=== PATIENT | male | born 1955 | race African-American/Black ===

== ENCOUNTER → 2017-01-18 | Outpatient (CLI) | payer OTHER ==
[2017-01-18 10:56] LABS: Anion Gap 13 mmol/L; Blood Urea Nitrogen 20 mg/dL (9-20); Calcium 9.2 mg/dL (8.4-10.2); Carbon Dioxide 22 mmol/L (22-30); Chloride 104 mmol/L (98-107); Glucose 113 mg/dL (74-99); Non-African American GFR(MDRD) >60 (>60 ml/min/1.73 sqM); Potassium 5.2 mmol/L (3.5-5.1); Sodium 139 mmol/L (137-145)
[2017-01-18 12:50] LABS: Hemoglobin A1C 8.1 % (4.2-6.1)
== END | disposition home or self-care (01) ==
LOC: LABWHC1 10:07
PROVIDERS: ATTEND Internal Medicine
DX: E11.9 Type 2 diabetes mellitus without complications (principal); E87.8 Other disorders of electrolyte and fluid balance, not elsewhere classified
CPT/HCPCS: 36415; 80048; 83036

== ENCOUNTER → 2017-01-23 | Outpatient (CLI) | payer OTHER ==
[2017-01-28 16:10] LABS: Mis test requested (Blood) Narcolepsy
== END | disposition home or self-care (01) ==
LOC: LABT 12:34
PROVIDERS: ATTEND Internal Medicine
DX: E78.5 Hyperlipidemia, unspecified (principal)
CPT/HCPCS: 81383; 84132

== ENCOUNTER → 2017-05-09 | Outpatient (CLI) | payer OTHER ==
[2017-05-09 13:35] LABS: Anion Gap 13 mmol/L; Blood Urea Nitrogen 21 mg/dL (9-20); Calcium 9.5 mg/dL (8.4-10.2); Carbon Dioxide 19 mmol/L (22-30); Chloride 109 mmol/L (98-107); Glucose 82 mg/dL (74-99); Non-African American GFR(MDRD) >60 (>60 ml/min/1.73 sqM); Potassium 5.2 mmol/L (3.5-5.1); Sodium 141 mmol/L (137-145)
[2017-05-09 13:37] LABS: Rheumatoid Factor, Qnt <9 IU/mL (<12)
[2017-05-09 13:41] LABS: Hemoglobin A1C 7.2 % (4.2-6.1)
--- NOTE | 2017-05-09 15:46 | XR ---
Bilateral wrists HISTORY: Rheumatoid arthritis, bilateral hand and wrist pain 4 views of the left and right wrist are submitted Bone mineralization and alignment are maintained bilaterally. Some minimal marginal spurring, subchon dral sclerosis present at the first metacarpal carpal joint of the left and right hand. No soft tissu e calcifications are present. IMPRESSION: Osteoarthritis.
[2017-05-09 19:39] LABS: ANA w/Reflex to Titer NEGATIVE (NEGATIVE)
--- NOTE | 2017-05-09 21:47 | XR ---
Bilateral hands HISTORY: Rheumatoid arthritis 3 views of both hands are submitted. Joint space loss is most significant at the metacarpophalangeal joint of the third digit, there are s ubchondral geode formation, marginal spurring on the left hand. There is ankylosis of the first metac arpophalangeal joint of the left. Alignment and bone mineralization are maintained. There is a margin al erosion at the medial aspect of the metacarpophalangeal joint of the fifth digit. Loss of joint space also present at the metacarpophalangeal joint of the first right hand. Some degen erative change present at the interphalangeal joint of the first digit as well as carpometacarpal ramu nt and first digit of the right hand. IMPRESSION: Fifth digit of the left hand shows features consistent with rheumatoid arthritis however there are additional findings compatible with osteoarthritis as described.
== END | disposition home or self-care (01) ==
LOC: LABWHC1 12:41
PROVIDERS: ATTEND Internal Medicine
DX: M19.031 Primary osteoarthritis, right wrist (principal); M19.032 Primary osteoarthritis, left wrist; M21.941 Unspecified acquired deformity of hand, right hand; M21.942 Unspecified acquired deformity of hand, left hand
CPT/HCPCS: 36415; 80048; 83036; 86038; 86200; 86225; 86431

== ENCOUNTER → 2017-05-14 | Outpatient (CLI) | payer OTHER ==
[2017-05-14 13:57] LABS: Anion Gap 13 mmol/L; Blood Urea Nitrogen 22 mg/dL (9-20); Calcium 9.2 mg/dL (8.4-10.2); Carbon Dioxide 18 mmol/L (22-30); Chloride 109 mmol/L (98-107); Glucose 153 mg/dL (74-99); Non-African American GFR(MDRD) >60 (>60 ml/min/1.73 sqM); Sodium 140 mmol/L (137-145)
[2017-05-14 14:02] LABS: Potassium 5.5 mmol/L (3.5-5.1)
[2017-05-14 21:39] LABS: Cyclic Citrull Pep IgG Unit <0.5 U/mL; Cyclic Citrullinated Pep IgG NEGATIVE (NEGATIVE)
== END | disposition home or self-care (01) ==
LOC: LABWHC1 12:38
PROVIDERS: ATTEND Internal Medicine
DX: E11.9 Type 2 diabetes mellitus without complications (principal); E87.8 Other disorders of electrolyte and fluid balance, not elsewhere classified; M81.0 Age-related osteoporosis without current pathological fracture; M06.9 Rheumatoid arthritis, unspecified
CPT/HCPCS: 36415; 80048; 85652; 86200

== ENCOUNTER → 2017-05-20 | Outpatient (CLI) | payer OTHER | END | disposition home or self-care (01) | LOC: LABWHC1 09:22 | PROVIDERS: ATTEND Internal Medicine | DX: E11.9 Type 2 diabetes mellitus without complications (principal); E87.5 Hyperkalemia | CPT/HCPCS: 36415; 84132 ==

== ENCOUNTER → 2017-08-07 | Outpatient (CLI) | payer OTHER ==
[2017-08-07 13:05] LABS: Basophils % (A) 1 %; CH 29.8; CHCM 32.8; Eosinophils # (A) 0.2 k/uL (0-0.7); Eosinophils % (A) 4 %; HCT 43.3 % (39.0-53.0); HDW 2.35; Luc # (Auto) 0.11; Luc % (Auto) 2; Lymphocytes # (A) 1.1 k/uL (1.0-4.8); Lymphocytes % (A) 20 %; MCH 29.5 pg (25.0-35.0); MCHC 32.3 g/dL (31.0-37.0); MCV 91.2 fL (80.0-100.0); Mean Platelet Volume 7.7; Monocytes # (A) 0.3 k/uL (0-1.0); Monocytes % (A) 6 %; Neutrophils # (A) 3.6 k/uL (1.3-7.7); Neutrophils % (A) 68 %; RBC 4.74 m/uL (4.30-5.90); WBC 5.3 k/uL (3.8-10.6); WBC (Perox) 5.09
[2017-08-07 13:06] LABS: ALT 19 U/L (21-72); AST 20 U/L (17-59); Alkaline Phosphatase 77 U/L (38-126); Anion Gap 12 mmol/L; Blood Urea Nitrogen 20 mg/dL (9-20); C Reactive Protein 5.4 mg/L (<10.0); Calcium 9.1 mg/dL (8.4-10.2); Carbon Dioxide 20 mmol/L (22-30); Chloride 105 mmol/L (98-107); Cholesterol 111 mg/dL (<200); Creatine Kinase 148 U/L (55-170); Glucose 158 mg/dL (74-99); HDL Cholesterol 31 mg/dL (40-60); Magnesium 1.1 mg/dL (1.6-2.3); Non-African American GFR(MDRD) >60 (>60 ml/min/1.73 sqM); Phosphorous 3.4 mg/dL (2.5-4.5); Potassium 4.8 mmol/L (3.5-5.1); Sodium 137 mmol/L (137-145); Total Bilirubin 0.5 mg/dL (0.2-1.3); Uric Acid 7.1 mg/dL (3.5-8.5)
[2017-08-07 14:37] LABS: Erythrocyte Sedimentation Rate 13 mm/hr (0-15)
[2017-08-07 21:40] LABS: Hemoglobin A1C 6.3 % (4.2-6.1)
== END | disposition home or self-care (01) ==
LOC: LABWHC1 11:28
PROVIDERS: ATTEND Internal Medicine
DX: Z00.00 Encounter for general adult medical examination without abnormal findings (principal); E87.8 Other disorders of electrolyte and fluid balance, not elsewhere classified; E87.6 Hypokalemia; D64.9 Anemia, unspecified; N40.0 Benign prostatic hyperplasia without lower urinary tract symptoms; E78.5 Hyperlipidemia, unspecified; I10 Essential (primary) hypertension; E55.9 Vitamin D deficiency, unspecified; G14 Postpolio syndrome
CPT/HCPCS: 80061; 80053; 85652; 84443; 83036; 82550; 83735; 84100; 84550; 85025; 86140; 82306; 83970; 36415; G0103

== ENCOUNTER → 2017-09-04 | Outpatient (CLI) | payer OTHER ==
--- NOTE | 2017-09-05 09:43 | ECHOF ---
Referral Reason:I25.2 post mycardial infarction MEASUREMENTS -------- HEIGHT: 177.8 cm WEIGHT: 77.1 kg BP: IVSd: 1.1 cm (0.6 - 1.1) LVIDd: 3.8 cm (3.9 - 5.3) LVPWd: 1.0 cm (0.6 - 1.1) IVSs: 1.3 cm LVIDs: 3.5 cm LVPWs: 1.0 cm LAESV Index (A-L): 24.38 ml/m Ao Diam: 3.4 cm (2.0 - 3.7) AV Cusp: 2.0 cm (1.5 - 2.6) LA Diam: 3.2 cm (2.7 - 3.8) MV EXCURSION: 20.347 mm (> 18.000) MV EF SLOPE: 64 mm/s (70 - 150) EPSS: 0.9 cm MV E Rui: 0.52 m/s MV DecT: 241 ms MV A Rui: 0.70 m/s MV E/A Ratio: 0.74 RAP: 5.00 mmHg RVSP: 9.56 mmHg FINDINGS -------- Sinus rhythm. This was a technically adequate study. The left ventricular size is normal. Left ventricular wall thickness is normal. Overall left ventricular systolic function is normal with, an EF between 55 - 60 %. The right ventricle is normal in size. Normal LA size by volume 22+/-6 ml/m2. The right atrial size is normal. There is mild aortic valve sclerosis. There is no evidence of aortic regurgitation. Mild mitral regurgitation is present. Mild tricuspid regurgitation present. There is no evidence of pulmonary hypertension. The right ventricular systolic pressure, as measured by Doppler, is 9.56mmHg. There is no pulmonic regurgitation present. The aortic root size is normal. There is no pericardial effusion. CONCLUSIONS -------- 1. The left ventricular size is normal. 2. The aortic root size is normal. 3. There is no pericardial effusion. 4. Left ventricular wall thickness is normal. 5. Overall left ventricular systolic function is normal with, an EF between 55 - 60 %. 6. There is mild aortic valve sclerosis. 7. Mild mitral regurgitation is present. 8. Mild tricuspid regurgitation present. 9. There is no evidence of pulmonary hypertension. 10. The right ventricular systolic pressure, as measured by Doppler, is 9.56mmHg. 11. There is no pulmonic regurgitation present. [place] MATE: Venus Deleon RDCS
== END | disposition home or self-care (01) ==
LOC: RADECHMAIN 11:30
PROVIDERS: ATTEND Internal Medicine
DX: I34.0 Nonrheumatic mitral (valve) insufficiency (principal); I07.1 Rheumatic tricuspid insufficiency; I25.2 Old myocardial infarction
CPT/HCPCS: 93306

== ENCOUNTER → 2017-09-11 | Outpatient (CLI) | payer OTHER ==
[2017-09-11 13:54] LABS: Anion Gap 12 mmol/L; Blood Urea Nitrogen 15 mg/dL (9-20); Calcium 9.4 mg/dL (8.4-10.2); Carbon Dioxide 23 mmol/L (22-30); Chloride 104 mmol/L (98-107); Glucose 237 mg/dL (74-99); Magnesium 1.2 mg/dL (1.6-2.3); Non-African American GFR(MDRD) >60 (>60 ml/min/1.73 sqM); Potassium 5.3 mmol/L (3.5-5.1); Sodium 139 mmol/L (137-145)
== END | disposition home or self-care (01) ==
LOC: LABWHC1 12:35
PROVIDERS: ATTEND Internal Medicine
DX: E87.8 Other disorders of electrolyte and fluid balance, not elsewhere classified (principal); E83.42 Hypomagnesemia; A09 Infectious gastroenteritis and colitis, unspecified
CPT/HCPCS: 36415; 80048; 83735; 87045; 87046; 87324; 89055

== ENCOUNTER → 2017-12-04 | Outpatient (CLI) | payer OTHER ==
[2017-12-04 11:42] LABS: Anion Gap 12 mmol/L; Blood Urea Nitrogen 29 mg/dL (9-20); Calcium 9.4 mg/dL (8.4-10.2); Carbon Dioxide 23 mmol/L (22-30); Chloride 104 mmol/L (98-107); Glucose 167 mg/dL (74-99); Magnesium 1.5 mg/dL (1.6-2.3); Potassium 5.4 mmol/L (3.5-5.1); Sodium 139 mmol/L (137-145)
[2017-12-04 19:46] LABS: Hemoglobin A1C 8.3 % (4.0-6.0)
== END | disposition home or self-care (01) ==
LOC: LABWHC1 10:45
PROVIDERS: ATTEND Internal Medicine
DX: E11.9 Type 2 diabetes mellitus without complications (principal)
CPT/HCPCS: 36415; 80048; 83036; 83735; 84630

== ENCOUNTER 2018-02-04 08:01 | Day surgery (SDC) | payer OTHER ==
[2018-02-04] MEDS ORDERED: LIDOCAINE 1% 20 ML VIAL (10MG/ML) FOR IV START INTRADERMA PRN (08:15)
[2018-02-04 08:32] VITALS: TEMP 97.5
[2018-02-04 09:00] LABS: Glucose,Whole Blood 179 mg/dL (75-99)
[2018-02-04] MEDS: LACTATED RINGERS 1,000 ML IV SCH ×2 (09:03→09:04)
[2018-02-04] MEDS ORDERED: PROPOFOL 10 MG/ML 20 ML VIAL IV ONE (09:06)
[2018-02-04] MEDS ORDERED: fentaNYL (PF) 50 MCG/ML 2 ML AMP ONE (09:06)
[2018-02-04] MEDS ORDERED: MIDAZOLAM 2 MG/2 ML VIAL ONE (09:06)
[2018-02-04] MEDS ORDERED: LACTATED RINGERS 1,000 ML IV ONE (09:08)
[2018-02-04 10:03] VITALS: BP 127/63
--- NOTE | 2018-02-04 10:12 | P.PCN ---
Date of Procedure: 02/04/18 Procedure(s) Performed: Procedure: 1. Esophagogastroduodenoscopy and biopsy. 2. Colonoscopy and biopsy. Preoperative diagnosis: Epigastric pain and diarrhea. Postoperative diagnosis: 1. Small sliding hiatal hernia with no obvious esophagitis or complicated reflux disease. 2. Mild antral gastritis. 3. Normal colonoscopy. 4. Biopsies obtained from the duodenum, antrum, esophagus and right colon. Preparation: HalfLytely prep. Sedation: Was provided by anesthesia. Brief clinical history: The patient is a 62-year-old male who is referred for this evaluation because of epigastric pain and diarrhea since last summer. He had colonoscopy in 2013 that was normal. This evaluation is to assess for inflammatory bowel disease, celiac disease or other pathology. Procedure: With the patient on his left lateral decubitus position and after informed consent and adequate sedation, the Olympus-GIF 160 video upper endoscope was used and was advanced under direct vision through the cricopharyngeus down the esophagus. There was a small sliding hiatal hernia but no obvious esophagitis or complicated reflux disease. The endoscope was then passed into the stomach which was insufflated with air and inspected in detail including the retroflex view in the cardia. The was some mottling and erythema in the antrum but no ulcers or erosions. Pyloric channel, duodenal bulb, postbulbar area and descending duodenum appeared within normal limits. Because of his symptoms, I obtained biopsies from the duodenum, antrum and esophagus then the endoscope was withdrawn and I proceeded with the colonoscopy. Perianal area did not show any fissures or fistulas. There were no masses felt on digital rectal examination. The Olympus CF Q1 60 AL videocolonoscope was then inserted in the rectum in the usual fashion and advanced to the cecum. The preparation was good. The mucosa appeared healthy. No polyps or tumors were seen or any obvious diverticular disease or other pathology. I obtained biopsies from the right colon then I retroflexed endoscope in the rectum before the endoscope was withdrawn. The patient tolerated the procedure well. Plan: I discussed the findings with the patient and his caregiver. Will await biopsy results. He will follow up with you as planned and further plans will be made based on his course and biopsy results. Dietary intolerances, medication effect or functional bowel disease to be kept in mind if his biopsies do not give us insight into possible etiology of his chronic diarrhea. I will be happy to see in the office of his symptoms persist.
[2018-02-04 10:46] VITALS: PULSE 83; RESP 18
== END 2018-02-04 10:51 | disposition home or self-care (01) ==
LOC: ORWHC2ENDO 08:01
DX: K29.80 Duodenitis without bleeding (principal); K29.50 Unspecified chronic gastritis without bleeding; K20.0 Eosinophilic esophagitis; K44.9 Diaphragmatic hernia without obstruction or gangrene; R19.7 Diarrhea, unspecified; K21.9 Gastro-esophageal reflux disease without esophagitis; I10 Essential (primary) hypertension; E11.9 Type 2 diabetes mellitus without complications; Z79.4 Long term (current) use of insulin; Z95.0 Presence of cardiac pacemaker; G20 Parkinson's disease; Z86.73 Personal history of transient ischemic attack (TIA), and cerebral infarction without residual deficits; Z79.899 Other long term (current) drug therapy; G40.909 Epilepsy, unspecified, not intractable, without status epilepticus; Z88.0 Allergy status to penicillin
CPT/HCPCS: 88305; 45380; 43239; J2250; J3010; J2704

== ENCOUNTER → 2018-03-28 | Outpatient (CLI) | payer OTHER ==
[2018-03-28 11:22] LABS: Basophils % (A) 0 %; Eosinophils # (A) 0.3 k/uL (0-0.7); Eosinophils % (A) 4 %; HCT 39.4 % (39.0-53.0); HGB 13.2 gm/dL (13.0-17.5); Lymphocytes % (A) 14 %; MCH 28.7 pg (25.0-35.0); MCHC 33.6 g/dL (31.0-37.0); MCV 85.4 fL (80.0-100.0); Mean Platelet Volume 7.1; Monocytes # (A) 0.3 k/uL (0-1.0); Monocytes % (A) 4 %; Neutrophils # (A) 5.5 k/uL (1.3-7.7); Neutrophils % (A) 76 %; Platelet Count 200 k/uL (150-450); RBC 4.61 m/uL (4.30-5.90); RDW 12.5 % (11.5-15.5); WBC 7.3 k/uL (3.8-10.6)
[2018-03-28 11:32] LABS: ALT 20 U/L (21-72); AST 16 U/L (17-59); Alkaline Phosphatase 90 U/L (38-126); Anion Gap 16 mmol/L; Blood Urea Nitrogen 23 mg/dL (9-20); Calcium 9.1 mg/dL (8.4-10.2); Carbon Dioxide 21 mmol/L (22-30); Chloride 103 mmol/L (98-107); Glucose 254 mg/dL (74-99); Magnesium 1.7 mg/dL (1.6-2.3); Potassium 4.9 mmol/L (3.5-5.1); Sodium 140 mmol/L (137-145); Total Bilirubin 0.5 mg/dL (0.2-1.3); Total Protein 6.8 g/dL (6.3-8.2)
[2018-03-28 13:55] LABS: Erythrocyte Sedimentation Rate 19 mm/hr (0-15)
[2018-03-28 20:20] LABS: Hemoglobin A1C 8.8 % (4.0-6.0)
== END | disposition home or self-care (01) ==
LOC: LABWHC1 10:59
PROVIDERS: ATTEND Internal Medicine
DX: E78.5 Hyperlipidemia, unspecified (principal); E55.9 Vitamin D deficiency, unspecified; I10 Essential (primary) hypertension; E11.9 Type 2 diabetes mellitus without complications
CPT/HCPCS: 36415; 80053; 82306; 83036; 83735; 85025; 85652

== ENCOUNTER → 2018-04-18 | Outpatient (CLI) | payer OTHER ==
[2018-04-18 13:11] LABS: Basophils % (A) 1 %; Eosinophils # (A) 0.1 k/uL (0-0.7); Eosinophils % (A) 3 %; HCT 38.1 % (39.0-53.0); HGB 13.2 gm/dL (13.0-17.5); Lymphocytes # (A) 1.1 k/uL (1.0-4.8); Lymphocytes % (A) 27 %; MCH 29.8 pg (25.0-35.0); MCHC 34.5 g/dL (31.0-37.0); MCV 86.4 fL (80.0-100.0); Mean Platelet Volume 7.4; Monocytes # (A) 0.2 k/uL (0-1.0); Monocytes % (A) 5 %; Neutrophils # (A) 2.5 k/uL (1.3-7.7); Neutrophils % (A) 62 %; Platelet Count 192 k/uL (150-450); RBC 4.42 m/uL (4.30-5.90); WBC 4.1 k/uL (3.8-10.6)
[2018-04-18 13:32] LABS: ALT 29 U/L (21-72); AST 19 U/L (17-59); Albumin 3.8 g/dL (3.5-5.0); Alkaline Phosphatase 81 U/L (38-126); Anion Gap 15 mmol/L; Blood Urea Nitrogen 18 mg/dL (9-20); Calcium 9.5 mg/dL (8.4-10.2); Carbon Dioxide 20 mmol/L (22-30); Chloride 107 mmol/L (98-107); Glucose 209 mg/dL (74-99); Magnesium 1.4 mg/dL (1.6-2.3); Potassium 4.9 mmol/L (3.5-5.1); Sodium 142 mmol/L (137-145); Total Bilirubin 0.7 mg/dL (0.2-1.3); Total Protein 6.6 g/dL (6.3-8.2)
[2018-04-18 14:08] LABS: Erythrocyte Sedimentation Rate 17 mm/hr (0-15)
[2018-04-18 21:03] LABS: Hemoglobin A1C 9.4 % (4.0-6.0)
== END | disposition home or self-care (01) ==
LOC: LABWHC1 12:12
PROVIDERS: ATTEND Internal Medicine
DX: E78.5 Hyperlipidemia, unspecified (principal); E11.9 Type 2 diabetes mellitus without complications; I10 Essential (primary) hypertension; E55.9 Vitamin D deficiency, unspecified
CPT/HCPCS: 36415; 80053; 82306; 83036; 83735; 85025; 85652

== ENCOUNTER → 2018-04-29 | Outpatient (CLI) | payer OTHER ==
--- NOTE | 2018-04-29 13:32 | US ---
EXAMINATION TYPE: US mass soft tissue chest/back DATE OF EXAM: 04/29/2018 COMPARISON: NONE CLINICAL HISTORY: R22.2 Right gluteal Mass. Patient had right gluteal mass since Saturday. Patient s tates it hurts when he sits down and don't remember having an injury Right palpable gluteal mass scanned. Nonvascular cystic appearing lesion with internal echoes = 3.5 x 4.0 x 1.8 cm Contralateral image taken IMPRESSION: Indeterminate fluid collection, correlate for hematoma or abscess, follow-up recommended
== END | disposition home or self-care (01) ==
LOC: RADUSWWP 11:23
PROVIDERS: ATTEND Internal Medicine
DX: R93.7 Abnormal findings on diagnostic imaging of other parts of musculoskeletal system (principal)

== ENCOUNTER 2018-06-24 05:58 | Observation (INO) | payer OTHER ==
[2018-06-24] MEDS ORDERED: SODIUM CHLORIDE 0.9% 500 ML IV SCH (06:15)
[2018-06-24] MEDS ORDERED: DEXTROSE 50%-WATER 50 ML SYRINGE IVP STA (06:17)
--- NOTE | 2018-06-24 06:17 | ED ---
General Adult HPI - General Source: patient, family, EMS, RN notes reviewed Mode of arrival: EMS Limitations: no limitations <Jorge Diamond - Last Filed: 06/24/18 06:30> <Solomon Dumont - Last Filed: 06/24/18 09:27> - General Chief complaint: Recheck/Abnormal Lab/Rx Stated complaint: Hypoglycemia Time Seen by Provider: 06/24/18 06:05 - History of Present Illness Initial comments: Patient is a pleasant 62-year-old male presenting to the emergency department by EMS with family for hypoglycemia. Patient was found on the floor. EMS found blood sugar of 38. They did provide one half amp of D50 with improvement of symptoms. Family states patient did act somewhat differently yesterday. They believe patient still is acting somewhat abnormal. Patient does not recall the episode well. Patient complains of feeling cold. Family states he did appear sweaty earlier. Patient is a known diabetic. Patient also has Parkinson's. (Jorge Diamond) - Related Data Home Medications Medication Instructions Recorded Confirmed Baclofen [Lioresal] 10 mg PO HS 08/04/14 06/24/18 Cholecalciferol [Vitamin D3] 2,000 unit PO DAILY 08/04/14 06/24/18 Gabapentin [Neurontin] 100 mg PO BID 08/04/14 06/24/18 Loratadine [Claritin] 10 mg PO DAILY 08/04/14 06/24/18 Atorvastatin [Lipitor] 20 mg PO HS 02/04/18 06/24/18 Fluticasone Nasal [place] [Flonase 1 spray EA NOSTRIL BID 02/04/18 06/24/18 Nasal [place]] Furosemide [Lasix] 20 mg PO DAILY 02/04/18 06/24/18 Loperamide [Imodium] 2 mg PO QID PRN 02/04/18 06/24/18 Metoprolol Tartrate [Lopressor] 25 mg PO BID 02/04/18 06/24/18 Tamsulosin [Flomax] 0.4 mg PO HS 02/04/18 06/24/18 Carbidopa-Levodopa 25-100 mg 1 tab PO TID 06/24/18 06/24/18 [Sinemet 25-100] Insulin Aspart [NovoLOG Flexpen] See Protocol SQ ACHS 06/24/18 06/24/18 Insulin Lispro [humaLOG Kwikpen] 40 unit SQ HS 06/24/18 06/24/18 Lisinopril [Zestril] 10 mg PO DAILY 06/24/18 06/24/18 Magnesium Oxide [Mag-Ox] 400 mg PO BID 06/24/18 06/24/18 Thiamine [Vitamin B-1] 100 mg PO DAILY 06/24/18 06/24/18 hydrOXYzine HCL [Atarax] 25 mg PO HS 06/24/18 06/24/18 Allergies Allergy/AdvReac Type Severity Reaction Status Date / Time Penicillins Allergy Rash/Hives Verified 06/24/18 07:59 Review of Systems ROS Other: All systems not noted in ROS Statement are negative. Constitutional: Denies: fever Eyes: Denies: eye pain ENT: Denies: ear pain Respiratory: Denies: cough, dyspnea Cardiovascular: Denies: chest pain Endocrine: Reports: fatigue Gastrointestinal: Denies: abdominal pain Genitourinary: Denies: dysuria Musculoskeletal: Denies: back pain Skin: Denies: rash Neurological: Denies: headache <Jorge Diamond - Last Filed: 06/24/18 06:30> ROS Other: All systems not noted in ROS Statement are negative. <Solomon Dumont - Last Filed: 06/24/18 09:27> ROS Statement: Those systems with pertinent positive or pertinent negative responses have been documented in the HPI. 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 Absent: meningismus Respiratory exam: Present: normal lung sounds bilaterally Cardiovascular Exam: Present: regular rate, normal rhythm GI/Abdominal exam: Present: soft. Absent: tenderness Extremities exam: Present: normal inspection, other (Previous toe amputation) Neurological exam: Present: alert. Absent: motor sensory deficit Expanded Neurological exam: Present: protecting the airway Patient oriented to: Present: person, place. Absent: time Motor strength exam: RUE: 5, LUE: 5, RLE: 5, LLE: 5 Eye Response: (4) open spontaneously Motor Response: (6) obeys commands Verbal Response: (4) confused conversation Psychiatric exam: Present: normal affect, normal mood Skin exam: Present: normal color <Jorge Diamond - Last Filed: 06/24/18 06:30> Vital Signs 06/24/18 06/24/18 06:03 07:38 Temperature 94.4 F L 96.9 F L Pulse Rate 73 87 Respiratory 16 16 Rate Blood Pressure 168/72 141/71 O2 Sat by Pulse 96 96 Oximetry EKG Findings - EKG Comments: EKG Findings:: Normal sinus rhythm 82. UT 186. QRS 66. QT 374. QTC 436. Normal axis. Septal Q waves. No acute ST change. <Jorge Diamond - Last Filed: 06/24/18 06:30> Medical Decision Making <Jorge Diamond - Last Filed: 06/24/18 06:30> - Lab Data Result diagrams: 06/24/18 07:33 06/24/18 07:33 <Solomon Dumont - Last Filed: 06/24/18 09:27> - Medical Decision Making Patient care was signed out to me by previous shift physician. Briefly, patient is a 62-year-old male presents with hypoglycemia. According to EMS patient's blood sugar was found in the mid 30s. EMS was called initially because patient was found on the ground. Patient is on insulin regimen. Patient has 24-hour caretakers. There is no suspicion that patient had excessive amounts of antidiabetic medications. It appears that patient is well- nourished as well. There is no history of patient having an adequate amount carbohydrates. Patient wasn't started on any recent antibiotics. This point there is no overt signs of infection at this time. Given these findings will have patient admitted to observation. Discussed patient case with primary care physician who is willing to accept the admission. Patient is understandable and agreeable. We will have patient case on the floor with scheduled blood glucose checks. (Solomon Dumont) - Lab Data Lab Results 07/06/24/18 06/24/18 Range/Units 06:14 07:18 07:33 WBC 7.3 (3.8-10.6) k/uL RBC 5.51 (4.30-5.90) m/uL Hgb 15.2 (13.0-17.5) gm/dL Hct 49.2 (39.0-53.0) % MCV 89.3 (80.0-100.0) fL MCH 27.5 (25.0-35.0) pg MCHC 30.8 L (31.0-37.0) g/dL RDW 12.9 (11.5-15.5) % Plt Count 183 (150-450) k/uL Neutrophils % 86 % Lymphocytes % 9 % Monocytes % 3 % Eosinophils % 1 % Basophils % 0 % Neutrophils # 6.3 (1.3-7.7) k/uL Lymphocytes # 0.6 L (1.0-4.8) k/uL Monocytes # 0.2 (0-1.0) k/uL Eosinophils # 0.1 (0-0.7) k/uL Basophils # 0.0 (0-0.2) k/uL PT (9.0-12.0) sec INR (<1.2) APTT (22.0-30.0) sec Sodium (137-145) mmol/L Potassium (3.5-5.1) mmol/L Chloride (98-107) mmol/L Carbon Dioxide (22-30) mmol/L Anion Gap mmol/L BUN (9-20) mg/dL Creatinine (0.66-1.25) mg/dL Est GFR (CKD-EPI)AfAm (>60 ml/min/1.73 sqM) Est GFR (CKD-EPI)NonAf (>60 ml/min/1.73 sqM) Glucose (74-99) mg/dL POC Glucose (mg/dL) 51 L 81 (75-99) mg/dL POC Glu Machine Accountant Kimberly Castelan Kristen Plasma Lactic Acid Dionicio (0.7-2.0) mmol/L Calcium (8.4-10.2) mg/dL Total Bilirubin (0.2-1.3) mg/dL AST (17-59) U/L ALT (21-72) U/L Alkaline Phosphatase (38-126) U/L Total Creatine Kinase (55-170) U/L CK-MB (CK-2) (0.0-2.4) ng/mL CK-MB (CK-2) Rel Index Troponin I (0.000-0.034) ng/mL Total Protein (6.3-8.2) g/dL Albumin (3.5-5.0) g/dL 06/24/18 06/24/18 06/24/18 Range/Units 07:33 07:33 07:33 WBC (3.8-10.6) k/uL RBC (4.30-5.90) m/uL Hgb (13.0-17.5) gm/dL Hct (39.0-53.0) % MCV (80.0-100.0) fL MCH (25.0-35.0) pg MCHC (31.0-37.0) g/dL RDW (11.5-15.5) % Plt Count (150-450) k/uL Neutrophils % % Lymphocytes % % Monocytes % % Eosinophils % % Basophils % % Neutrophils # (1.3-7.7) k/uL Lymphocytes # (1.0-4.8) k/uL Monocytes # (0-1.0) k/uL Eosinophils # (0-0.7) k/uL Basophils # (0-0.2) k/uL PT 10.5 (9.0-12.0) sec INR 1.1 (<1.2) APTT 24.5 (22.0-30.0) sec Sodium 142 (137-145) mmol/L Potassium 4.7 (3.5-5.1) mmol/L Chloride 106 (98-107) mmol/L Carbon Dioxide 24 (22-30) mmol/L Anion Gap 12 mmol/L BUN 39 H (9-20) mg/dL Creatinine 1.20 (0.66-1.25) mg/dL Est GFR (CKD-EPI)AfAm 74 (>60 ml/min/1.73 sqM) Est GFR (CKD-EPI)NonAf 64 (>60 ml/min/1.73 sqM) Glucose 52 L (74-99) mg/dL POC Glucose (mg/dL) (75-99) mg/dL POC Glu Machine Accountant ID Plasma Lactic Acid Dionicio 2.1 H* (0.7-2.0) mmol/L Calcium 9.6 (8.4-10.2) mg/dL Total Bilirubin 0.6 (0.2-1.3) mg/dL AST 39 (17-59) U/L ALT 19 L (21-72) U/L Alkaline Phosphatase 71 (38-126) U/L Total Creatine Kinase (55-170) U/L CK-MB (CK-2) (0.0-2.4) ng/mL CK-MB (CK-2) Rel Index Troponin I (0.000-0.034) ng/mL Total Protein 8.4 H (6.3-8.2) g/dL Albumin 4.8 (3.5-5.0) g/dL 06/24/18 06/24/18 Range/Units 07:33 08:29 WBC (3.8-10.6) k/uL RBC (4.30-5.90) m/uL Hgb (13.0-17.5) gm/dL Hct (39.0-53.0) % MCV (80.0-100.0) fL MCH (25.0-35.0) pg MCHC (31.0-37.0) g/dL RDW (11.5-15.5) % Plt Count (150-450) k/uL Neutrophils % % Lymphocytes % % Monocytes % % Eosinophils % % Basophils % % Neutrophils # (1.3-7.7) k/uL Lymphocytes # (1.0-4.8) k/uL Monocytes # (0-1.0) k/uL Eosinophils # (0-0.7) k/uL Basophils # (0-0.2) k/uL PT (9.0-12.0) sec INR (<1.2) APTT (22.0-30.0) sec Sodium (137-145) mmol/L Potassium (3.5-5.1) mmol/L Chloride (98-107) mmol/L Carbon Dioxide (22-30) mmol/L Anion Gap mmol/L BUN (9-20) mg/dL Creatinine (0.66-1.25) mg/dL Est GFR (CKD-EPI)AfAm (>60 ml/min/1.73 sqM) Est GFR (CKD-EPI)NonAf (>60 ml/min/1.73 sqM) Glucose (74-99) mg/dL POC Glucose (mg/dL) 84 (75-99) mg/dL POC Glu Machine Accountant ID Rhonda Maldonado Plasma Lactic Acid Dionicio (0.7-2.0) mmol/L Calcium (8.4-10.2) mg/dL Total Bilirubin (0.2-1.3) mg/dL AST (17-59) U/L ALT (21-72) U/L Alkaline Phosphatase (38-126) U/L Total Creatine Kinase 354 H (55-170) U/L CK-MB (CK-2) 3.4 H* (0.0-2.4) ng/mL CK-MB (CK-2) Rel Index 1.0 Troponin I 0.015 (0.000-0.034) ng/mL Total Protein (6.3-8.2) g/dL Albumin (3.5-5.0) g/dL Disposition <Jorge Diamond - Last Filed: 06/24/18 06:30> Time of Disposition: 09:27 <Solomon Dumont - Last Filed: 06/24/18 09:27> Clinical Impression: Hypoglycemia Disposition: ADMITTED IP TO THIS HOSP Condition: Fair Referrals: Ruben Arriaga MD [Primary Care Provider] - 1-2 days
[2018-06-24 06:47] LABS: Glucose,Whole Blood 51 mg/dL (75-99)
--- NOTE | 2018-06-24 07:19 | XR ---
EXAMINATION TYPE: XR chest 2V DATE OF EXAM: 06/24/2018 COMPARISON: 08/05/2014 HISTORY: 62-year-old male with fever TECHNIQUE: AP and lateral views FINDINGS: The cardiomediastinal silhouette, aorta, and pulmonary vasculature are within normal limits. Lungs an d pleural spaces are clear. IMPRESSION: No acute cardiopulmonary process.
[2018-06-24 07:20] LABS: Glucose,Whole Blood 81 mg/dL (75-99)
--- NOTE | 2018-06-24 07:22 | CT ---
EXAMINATION TYPE: CT brain wo con DATE OF EXAM: 06/24/2018 COMPARISON: 03/21/2010 HISTORY: 62-year-old male hypoglycemic episode, dizziness and confusion, Altered mental status TECHNIQUE: Examination was done in axial plane without intravenous contrast. Coronal and sagittal r econstructions performed. CT DLP: 735.1 mGycm Automated exposure control for dose reduction was used. FINDINGS: There is no evidence of acute intracranial hemorrhage, acute ischemic changes, mass, mass-effect, or extra-axial fluid collection. There is no effacement of cerebral sulci or basal subarachnoid cister ns. There is no hydrocephalus. There is no midline shift. [place]-white matter distinction is preserv ed. Partially empty sella incidentally noted. Mild patchy periventricular white matter hypodensities. Old lacunar infarct in the left basal ganglia. Paranasal sinuses and mastoid air cells well pneumatized. Rightward nasal deviation. Orbits and globe s are intact. IMPRESSION: No acute intracranial abnormality seen. Mild changes of chronic small vessel ischemic disease and old lacunar infarct left basal ganglia.
[2018-06-24 07:50] LABS: Basophils % (A) 0 %; Eosinophils # (A) 0.1 k/uL (0-0.7); Eosinophils % (A) 1 %; HCT 49.2 % (39.0-53.0); HGB 15.2 gm/dL (13.0-17.5); Lymphocytes # (A) 0.6 k/uL (1.0-4.8); Lymphocytes % (A) 9 %; MCH 27.5 pg (25.0-35.0); MCHC 30.8 g/dL (31.0-37.0); MCV 89.3 fL (80.0-100.0); Mean Platelet Volume 7.1; Monocytes # (A) 0.2 k/uL (0-1.0); Monocytes % (A) 3 %; Neutrophils # (A) 6.3 k/uL (1.3-7.7); Neutrophils % (A) 86 %; Platelet Count 183 k/uL (150-450); RBC 5.51 m/uL (4.30-5.90); RDW 12.9 % (11.5-15.5); WBC 7.3 k/uL (3.8-10.6)
[2018-06-24 08:02] LABS: INR 1.1 (<1.2); Partial Thromboplastin Time 24.5 sec (22.0-30.0); Prothrombin Time 10.5 sec (9.0-12.0)
[2018-06-24 08:06] LABS: Albumin 4.8 g/dL (3.5-5.0); Calcium 9.6 mg/dL (8.4-10.2); Total Bilirubin 0.6 mg/dL (0.2-1.3); Total Protein 8.4 g/dL (6.3-8.2)
[2018-06-24 08:10] LABS: Potassium 4.7 mmol/L (3.5-5.1)
[2018-06-24 08:24] LABS: Troponin I 0.015 ng/mL (0.000-0.034)
[2018-06-24 08:30] LABS: Glucose,Whole Blood 84 mg/dL (75-99)
[2018-06-24 08:30] LABS: Creatine Kinase MB 3.4 ng/mL (0.0-2.4)
[2018-06-24] MEDS ORDERED: NALOXONE 0.4 MG/ML 1 ML VIAL IV PRN (09:23)
[2018-06-24] MEDS ORDERED: SODIUM CHLORIDE 0.9% 500 ML IV STA (09:41)
[2018-06-24 09:56] LABS: Appearance,Urine Clear (Clear); Bilirubin,Urine Negative (Negative); Blood,Urine Negative (Negative); Color,Urine Light Yellow; Glucose,Urine (UA) 2+ (Negative); Ketones,Urine Negative (Negative); Leukocyte Esterase,Urine Negative (Negative); Nitrite,Urine Negative (Negative); PH, Urine 5.5 (5.0-8.0); Protein,Urine Negative (Negative); Specific Gravity,Urine 1.008 (1.001-1.035); Urobilinogen,Urine <2.0 mg/dL (<2.0)
[2018-06-24 10:17] LABS: Glucose,Whole Blood 136 mg/dL (75-99)
[2018-06-24] MEDS ORDERED: LOPERAMIDE 2 MG CAP PO PRN (10:42)
[2018-06-24 11:09] LABS: Glucose,Whole Blood 178 mg/dL (75-99)
[2018-06-24] MEDS: SODIUM CHLORIDE 0.9% 1,000 ML IV SCH ×2 (12:25→16:54)
[2018-06-24] MEDS: INSULIN ASPART 100 UNIT/ML 1 ML 10 ML VIAL SQ SCH ×2 (12:25→17:48)
[2018-06-24] MEDS: CARBIDOPA-LEVODOPA 25-100 MG 1 EACH TAB PO SCH ×3 (12:26→21:01)
[2018-06-24] MEDS: CHOLECALCIFEROL 1,000 UNIT TAB PO SCH (12:26)
[2018-06-24] MEDS: GABAPENTIN 100 MG CAP PO SCH ×2 (12:27→21:01)
[2018-06-24] MEDS ORDERED: MAGNESIUM HYDROXIDE 2,400 MG/10 ML CUP PO PRN (13:50)
--- NOTE | 2018-06-24 13:50 | P.HPIM ---
History of Present Illness H&P Date: 06/24/18 (Observation admission) Chief Complaint: Hypoglycemia secondary to excess of insulin at bedtime This is a history and physical dictated by Dr. berta MD,FACP. Chief complaint: Broad by ambulance to the emergency room with the underlying hypoglycemia and as he had was followed down and was out by his cousin. They checked today and mass blood sugar found that he is 38 and that's around 5:00 AM. Patient received of D50 and they started the IV with D5 W and subsequently patient brought to the emergency room. History of present illness a 62 years old -[place] male with the underlying insulin-dependent diabetes mellitus has been received large insulin unit 40 units as he stated at bedtime and apparently there is some misunderstanding and mistakes of the amount of insulin. He received 40 units last night of NovoLog insulin. Patient supposedly he is on long-acting insulin as well as he is on short- acting insulin for the day to scale and during the night he is only on long- acting insulin on reviewing the medication found that he was taken Humalog quick pen and NovoLog and both of them is short acting which resulted and his hypoglycemic episode. With a 38 blood sugar The past medical history patient has history of recent lump from his left buttocks as a but has been removed by Dr. Jordan apparently associated with fat necrosis no malignancy. He has history of diabetes mellitus type 2 insulin-dependent, benign prostatic hypertrophy, Parkinson disease treated by Dr. Simon, hypertension, history of diarrhea and history of constipation. Patient requested today on the interview milk of magnesia because of the constipation. 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 Bilateral nasal ALLERGY as well as underlying chronic muscle spasm and low back pain. Medication he is on baclofen 10 mg daily at bedtime by Dr. Simon Vitamin D3 2000 units once a day Gabapentin teen Neurontin is 100 mg twice a day for neuropathy Loratadine 10 mg daily Atorvastatin 20 mg at at bedtime daily Fluticasone nasal spray and this is one spray each nostril twice a day Furosemide 20 mg daily Imodium 2 mg by mouth twice a day only when necessary with the diarrhea next Tamsulosin Flomax is 0.4 mg at at bedtime Carbidopa levodopa 97814 milligrams "" Sinemet 30291 one tablet 3 times a day. NovoLog flex pen before meals and at bedtime with the history of long-acting however patient confused and he used was the short-acting Humalog quick pen which has been discontinued. Lisinopril 10 mg daily Magnesium oxide 400 mg twice a day with a history of hypomagnesemia. Thiamine vitamin B1 100 mg daily and hydroxyzine Atarax 25 mg at at bedtime. ALLERGY to penicillin. Review of system: 14 point review of was negative and patient alert oriented 3 he will wake up. Injection of the D50 from the hypoglycemia. And no neurological deficit. No history of seizure disorder and he is not on any medication for that. He had some joint replacement on the feet with the deformity of the feet. Patient with developmental mentally abnormality since . Smoking never. Drinking never Examination: Conscious alert oriented 3 able to communicate freely. General appearance is no distress no shortness of breath. HEENT head was normocephalic and atraumatic pupils equal reactive no trauma apparent normal nose and pharynx normal his swallowing and eating. Neck was supple no JVD no thyromegaly no lymphadenopathy. Chest clear to auscultation and percussion. Heart: Regular sinus rhythm with PMI fifth intercostal space mildly outside midclavicular line normal S1 and S2 no gallop appreciated. GI no abdominal pain or tendon tenderness in the 4 quadrants as well as epigastric and suprapubic. Extremities: No edema and positive pulses and he has deformity of both feet with several surgery in the past. Psychiatrically exam stable normal mood. Skin normal with a history of surgery by Dr. Jordan recently on the left gluteal area. Her vital his vital sign indicating temperature was 96.9 pulse 87 respiratory rate 16 blood pressure 141/71 with the oxygen 96% his EKG normal sinus rhythm with a rate of 82 and the septal Q waves and no acute ST segment changes the QTC 436 and the QRS 66 and the NE was 186 Laboratory data white count WBC 7.3 and hemoglobin 15.2 and hematocrit 49.2 and platelet count 183 Chemistry is sodium 142 potassium 4.7 chloride 106 carbon dioxide 24 and BUN 39 and creatinine 1.2 with the estimated glomerular filtration rate is 52 with blood sugar which is still at that time hypoglycemic at 7:30 3 in the morning he had also lactic acid was slightly elevated probably associated with the mild dehydration his electrolyte however potassium 4.7 and the sodium 142 and chloride 106 carbon dioxide 24 and no evidence of acidosis is being anion gap is 12. Estimated glomerular filtration rate for 62 with the probably chronic kidney disease stage II Assessment: Acute hypoglycemic episode with the increase bedtime insulin he received 40 units apparently mistakenly. He does not have any previous episodes of hypo- hyperglycemia. Chronic kidney disease disease stage II. Hypertension hypertensive heart disease Diabetes mellitus type 2 insulin-dependent. 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 History of hypomagnesemia. History of diarrhea for his constipation was questionable diabetic neuropathy versus irritable bowel syndrome. Plan: We'll continue IV slowly and recheck the lactic acid monitoring the blood sugar with the before meals and at bedtime only coverage without any adding any other long-acting medication Patient admitted on observation status And we will start him on magnesium for his bowel as he requested. On a when necessary basis and ambulate as tolerated. Past Medical History Past Medical History: Diabetes Mellitus, GERD/Reflux, Hypertension, Memory Impairment, Seizure Disorder Additional Past Medical History / Comment(s): Parkinsons; mentally delayed from states caregiver History of Any Multi-Drug Resistant Organisms: None Reported Past Surgical History: Joint Replacement, Orthopedic Surgery Past Anesthesia/Blood Transfusion Reactions: No Reported Reaction Smoking Status: Never smoker Medications and Allergies Home Medications Medication Instructions Recorded Confirmed Type Baclofen [Lioresal] 10 mg PO HS 08/04/14 06/24/18 History Cholecalciferol [Vitamin D3] 2,000 unit PO DAILY 08/04/14 06/24/18 History Gabapentin [Neurontin] 100 mg PO BID 08/04/14 06/24/18 History Loratadine [Claritin] 10 mg PO DAILY 08/04/14 06/24/18 History Atorvastatin [Lipitor] 20 mg PO HS 02/04/18 06/24/18 History Fluticasone Nasal [place] [Flonase 1 spray EA NOSTRIL BID 02/04/18 06/24/18 History Nasal [place]] Furosemide [Lasix] 20 mg PO DAILY 02/04/18 06/24/18 History Loperamide [Imodium] 2 mg PO QID PRN 02/04/18 06/24/18 History Metoprolol Tartrate [Lopressor] 25 mg PO BID 02/04/18 06/24/18 History Tamsulosin [Flomax] 0.4 mg PO HS 02/04/18 06/24/18 History Carbidopa-Levodopa 25-100 mg 1 tab PO TID 06/24/18 06/24/18 History [Sinemet 25-100] Insulin Aspart [NovoLOG Flexpen] See Protocol SQ ACHS 06/24/18 06/24/18 History Insulin Lispro [humaLOG Kwikpen] 40 unit SQ HS 06/24/18 06/24/18 History Lisinopril [Zestril] 10 mg PO DAILY 06/24/18 06/24/18 History Magnesium Oxide [Mag-Ox] 400 mg PO BID 06/24/18 06/24/18 History Thiamine [Vitamin B-1] 100 mg PO DAILY 06/24/18 06/24/18 History hydrOXYzine HCL [Atarax] 25 mg PO HS 06/24/18 06/24/18 History Allergies Allergy/AdvReac Type Severity Reaction Status Date / Time Penicillins Allergy Rash/Hives Verified 06/24/18 07:59 Physical Exam Vitals: Vital Signs Temp Pulse Pulse Resp BP BP Pulse Ox 06/24/18 10:20 98.0 F 80 20 138/87 100 06/24/18 10:11 97.2 F L 77 16 130/85 96 06/24/18 07:38 96.9 F L 87 16 141/71 96 06/24/18 06:03 94.4 F L 73 16 168/72 96 Intake and Output 06/23/18 06/24/18 06/24/18 22:59 06:59 14:59 Other: Weight 91 kg Results CBC & Chem 7: 06/24/18 07:33 06/24/18 07:33 Labs: Abnormal Lab Results - Last 24 Hours (Table) 06/24/18 06/24/18 06/24/18 Range/Units 06:14 07:33 07:33 MCHC 30.8 L (31.0-37.0) g/dL Lymphocytes # 0.6 L (1.0-4.8) k/uL BUN 39 H (9-20) mg/dL Glucose 52 L (74-99) mg/dL POC Glucose (mg/dL) 51 L (75-99) mg/dL Plasma Lactic Acid Dionicio (0.7-2.0) mmol/L ALT 19 L (21-72) U/L Total Creatine Kinase (55-170) U/L CK-MB (CK-2) (0.0-2.4) ng/mL Total Protein 8.4 H (6.3-8.2) g/dL Urine Glucose (UA) (Negative) 06/24/18 06/24/18 06/24/18 Range/Units 07:33 07:33 09:35 MCHC (31.0-37.0) g/dL Lymphocytes # (1.0-4.8) k/uL BUN (9-20) mg/dL Glucose (74-99) mg/dL POC Glucose (mg/dL) (75-99) mg/dL Plasma Lactic Acid Dionicio 2.1 H* (0.7-2.0) mmol/L ALT (21-72) U/L Total Creatine Kinase 354 H (55-170) U/L CK-MB (CK-2) 3.4 H* (0.0-2.4) ng/mL Total Protein (6.3-8.2) g/dL Urine Glucose (UA) 2+ H (Negative) 06/24/18 06/24/18 Range/Units 10:03 11:07 MCHC (31.0-37.0) g/dL Lymphocytes # (1.0-4.8) k/uL BUN (9-20) mg/dL Glucose (74-99) mg/dL POC Glucose (mg/dL) 136 H 178 H (75-99) mg/dL Plasma Lactic Acid Dionicio (0.7-2.0) mmol/L ALT (21-72) U/L Total Creatine Kinase (55-170) U/L CK-MB (CK-2) (0.0-2.4) ng/mL Total Protein (6.3-8.2) g/dL Urine Glucose (UA) (Negative)
[2018-06-24] MEDS: FLUTICASONE 50MCG/SPRAY NASAL 16GM EA NOSTRIL SCH ×2 (16:56→20:59)
[2018-06-24] MEDS: FUROSEMIDE 20 MG TAB PO SCH (16:57)
[2018-06-24 17:06] LABS: Glucose,Whole Blood 309 mg/dL (75-99)
[2018-06-24 19:35] LABS: Hemoglobin A1C 8.2 % (4.0-6.0)
[2018-06-24 20:13] LABS: Glucose,Whole Blood 327 mg/dL (75-99)
[2018-06-24] MEDS ORDERED: TAMSULOSIN 0.4 MG CAP.ER.24H PO SCH (21:00)
[2018-06-24] MEDS ORDERED: BACLOFEN 10 MG TAB PO SCH (21:00)
[2018-06-24] MEDS ORDERED: ATORVASTATIN 20 MG TAB PO SCH (21:00)
[2018-06-24] MEDS ORDERED: hydrOXYzine HCL 25 MG TAB PO SCH (21:00)
[2018-06-24] MEDS: MAGNESIUM OXIDE 400 MG TAB PO SCH (21:01)
[2018-06-24] MEDS: METOPROLOL TARTRATE 25 MG TAB PO SCH (21:01)
[2018-06-24 21:18] VITALS: RESP 16
[2018-06-25 06:53] LABS: Glucose,Whole Blood 242 mg/dL (75-99)
[2018-06-25] MEDS: INSULIN ASPART 100 UNIT/ML 1 ML 10 ML VIAL SQ SCH ×2 (07:53→12:42)
[2018-06-25] MEDS: CHOLECALCIFEROL 1,000 UNIT TAB PO SCH (07:54)
[2018-06-25] MEDS: CARBIDOPA-LEVODOPA 25-100 MG 1 EACH TAB PO SCH (07:54)
[2018-06-25] MEDS: FUROSEMIDE 20 MG TAB PO SCH (07:55)
[2018-06-25] MEDS: FLUTICASONE 50MCG/SPRAY NASAL 16GM EA NOSTRIL SCH (07:55)
[2018-06-25] MEDS: GABAPENTIN 100 MG CAP PO SCH (07:56)
[2018-06-25] MEDS: MAGNESIUM OXIDE 400 MG TAB PO SCH (07:57)
[2018-06-25] MEDS: METOPROLOL TARTRATE 25 MG TAB PO SCH (07:57)
[2018-06-25 08:19] LABS: Calcium 8.9 mg/dL (8.4-10.2); Magnesium 1.6 mg/dL (1.6-2.3); Potassium 5.1 mmol/L (3.5-5.1)
[2018-06-25] MEDS ORDERED: LORATADINE 10 MG TAB PO SCH (09:00)
[2018-06-25] MEDS ORDERED: ENOXAPARIN 40 MG/0.4 ML SYRINGE SQ SCH (09:00)
[2018-06-25] MEDS ORDERED: THIAMINE 100 MG TAB PO SCH (09:00)
[2018-06-25] MEDS ORDERED: LISINOPRIL 10 MG TAB PO SCH (09:00)
[2018-06-25 11:25] LABS: Glucose,Whole Blood 281 mg/dL (75-99)
--- NOTE | 2018-06-25 13:22 | P.DS ---
Providers Date of admission: 06/24/18 09:23 Expected date of discharge: 06/25/18 (Observation status) Attending physician: Ruben Arriaga Primary care physician: Ruben Arriaga This is discharge summary from observation status date of admission 06/24 2018 Date of discharge 06/25/2018. Final diagnosis: Hypoglycemia with a blood sugar 38 found not responding, wake up with the injection of D50. Due to use of 40 mg of short acting insulin. Diabetes mellitus type 2, insulin-dependent, with severe hyperglycemia was not controlled in the past. Mental function disability since . 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 Chronic hypomagnesemia History of intermittent diarrhea with the etiology unknown with probability diabetic gastropathy. Hyperlipidemia. Small vessel ischemic disease by the computed tomography scan chronic with the old lacunar infarction in the left basal ganglia old. Parkinson disease treated by Dr. Simon. Hypertension essential controlled. Presentation to the ER: Patient was picked up from home by EMS and subsequently given D50 and brought to the emergency room with the hypoglycemia patient was slow and lethargic and awake admitted to the hospital on observation status and monitoring the blood sugar. Patient continued monitoring with the blood sugar and he become also hyperglycemic and insulin was started subcu to scale. Patient was mildly dehydrated and and gentle hydration was advised with 50 mL an hour 0.9 normal saline. His hemoglobin A1c was 8.2 and his repeat blood sugar in the hospital was 52 and on admission as well as the BUN 39 and creatinine 1.2. On the hospital course his electrolyte was repeated with the improvement of the BUN 30 and creatinine to 1.15 and his blood sugar has been picked up to 249 his magnesium today 1.6 and his liver enzyme yesterday was normal and secondary to the fall he has CK 354 mildly elevated however the troponin was done on admission and was negative his total protein 8.4 with albumin 4.8 with the underlying as mentioned mild dehydration start to improve with the IV as well as we will be continuing the oral hydration. His white WBC 7.3, hemoglobin 15.2, hematocrit 49.2 and platelet count is 138. Patient was raised on DVT prophylaxis however the patient advised for ambulation 4 times a day in the hospital. Chest x-ray done on admission and there is no acute cardiopulmonary process. On discharge: On discharge today 06/25/2018 temperature 98.6 orally pulse rate 77 regular and his blood pressure 130/85 with a mean 94 and his oxygen saturation 100%. Gen. exam: Patient conscious alert oriented 3 eating his lunch sitting in bed and able to ambulate. HEENT was normal and he is edentulous but eat on his, gum Neck was supple no JVD no thyromegaly no lymphadenopathy trachea midline. Chest was clear to auscultation and percussion no wheezes no rhonchi's Heart regular sinus rhythm no dysrhythmia. Abdomen soft positive bowel sounds no organ enlargement. Extremities he had multiple surgery was atrophy of the muscle and some balance problem associated with the history of polio and postpolio syndrome however pulses is intact bilaterally. Neurologically stable Psychiatry stable Assessment and plan: #1 patient stable general condition. #2 will continue his current medication again talked to Ariella his caregiver and we will be adjusting the insulin to a short-acting with the NovoLog and long acting with Levemir or Lantus, currently hospital use Levemir and will continue with the prescription for Levemir pens U1 100 and he will be started on 10 units only at bedtime and continue with the NovoLog according to the hospital for scale and the nursing staff will give him the scale. I will see him on Saturday for further evaluation with the oral medication in a bag as well as NovoLog short acting insulin also to bring her record for the insulin. Patient stable general condition for discharge home today Patient Condition at Discharge: Fair Plan - Discharge Summary Discharge Rx Participant: No New Discharge Prescriptions: New Insulin Detemir [Levemir] 10 unit SQ HS #5 pen Continue Loratadine [Claritin] 10 mg PO DAILY Gabapentin [Neurontin] 100 mg PO BID Baclofen [Lioresal] 10 mg PO HS Cholecalciferol [Vitamin D3] 2,000 unit PO DAILY Metoprolol Tartrate [Lopressor] 25 mg PO BID Tamsulosin [Flomax] 0.4 mg PO HS Fluticasone Nasal [place] [Flonase Nasal [place]] 1 spray EA NOSTRIL BID Furosemide [Lasix] 20 mg PO DAILY Loperamide [Imodium] 2 mg PO QID PRN PRN Reason: Diarrhea Atorvastatin [Lipitor] 20 mg PO HS Insulin Aspart [NovoLOG Flexpen] See Protocol SQ ACHS Thiamine [Vitamin B-1] 100 mg PO DAILY Magnesium Oxide [Mag-Ox] 400 mg PO BID Lisinopril [Zestril] 10 mg PO DAILY hydrOXYzine HCL [Atarax] 25 mg PO HS Carbidopa-Levodopa 25-100 mg [Sinemet 25-100 mg] 1 tab PO TID Discontinued Insulin Lispro [humaLOG Kwikpen] 40 unit SQ HS Discharge Medication List Baclofen [Lioresal] 10 mg PO HS 08/04/14 [History] Cholecalciferol [Vitamin D3] 2,000 unit PO DAILY 08/04/14 [History] Gabapentin [Neurontin] 100 mg PO BID 08/04/14 [History] Loratadine [Claritin] 10 mg PO DAILY 08/04/14 [History] Atorvastatin [Lipitor] 20 mg PO HS 02/04/18 [History] Fluticasone Nasal [place] [Flonase Nasal [place]] 1 spray EA NOSTRIL BID 02/04/18 [ History] Furosemide [Lasix] 20 mg PO DAILY 02/04/18 [History] Loperamide [Imodium] 2 mg PO QID PRN 02/04/18 [History] Metoprolol Tartrate [Lopressor] 25 mg PO BID 02/04/18 [History] Tamsulosin [Flomax] 0.4 mg PO HS 02/04/18 [History] Carbidopa-Levodopa 25-100 mg [Sinemet 25-100 mg] 1 tab PO TID 06/24/18 [History] Insulin Aspart [NovoLOG Flexpen] See Protocol SQ ACHS 06/24/18 [History] Lisinopril [Zestril] 10 mg PO DAILY 06/24/18 [History] Magnesium Oxide [Mag-Ox] 400 mg PO BID 06/24/18 [History] Thiamine [Vitamin B-1] 100 mg PO DAILY 06/24/18 [History] hydrOXYzine HCL [Atarax] 25 mg PO HS 06/24/18 [History] Insulin Detemir [Levemir] 10 unit SQ HS #5 pen 06/25/18 [Rx] Follow up Appointment(s)/Referral(s): Ruben Arriaga MD [Primary Care Provider] - 1-2 days
[2018-06-25 15:13] VITALS: BP 119/57; PULSE 67; TEMP 99.2
[2018-06-25] MEDS ORDERED: INSULIN DETEMIR 100 UNIT/ML 10 ML VIAL SQ SCH (21:00)
== END 2018-06-25 15:55 | disposition home or self-care (01) ==
LOC: EC 05:58 → 5MS5E 09:23
PROVIDERS: ADMIT Internal Medicine; ATTEND Internal Medicine
DX: E11.649 Type 2 diabetes mellitus with hypoglycemia without coma (principal); E11.65 Type 2 diabetes mellitus with hyperglycemia; Z86.12 Personal history of poliomyelitis; E83.42 Hypomagnesemia; E78.5 Hyperlipidemia, unspecified; G20 Parkinson's disease; E86.0 Dehydration; R74.8 Abnormal levels of other serum enzymes; G14 Postpolio syndrome; N40.0 Benign prostatic hyperplasia without lower urinary tract symptoms; K59.00 Constipation, unspecified; E55.9 Vitamin D deficiency, unspecified; E11.40 Type 2 diabetes mellitus with diabetic neuropathy, unspecified; E11.22 Type 2 diabetes mellitus with diabetic chronic kidney disease; M62.838 Other muscle spasm; M54.5 Low back pain; F79 Unspecified intellectual disabilities; G40.909 Epilepsy, unspecified, not intractable, without status epilepticus; I13.10 Hypertensive heart and chronic kidney disease without heart failure, with stage 1 through stage 4 chronic kidney disease, or unspecified chronic kidney disease; N18.2 Chronic kidney disease, stage 2 (mild); K21.9 Gastro-esophageal reflux disease without esophagitis; R19.7 Diarrhea, unspecified; T38.3X5A Adverse effect of insulin and oral hypoglycemic [antidiabetic] drugs, initial encounter; Z79.4 Long term (current) use of insulin; Z79.899 Other long term (current) drug therapy; Z79.51 Long term (current) use of inhaled steroids; Z88.0 Allergy status to penicillin; M21.962 Unspecified acquired deformity of left lower leg; M21.961 Unspecified acquired deformity of right lower leg; Z86.73 Personal history of transient ischemic attack (TIA), and cerebral infarction without residual deficits; R74.0 Nonspecific elevation of levels of transaminase and lactic acid dehydrogenase [LDH]
CPT/HCPCS: 99285 ×2; 96374 ×2; 96372; 36415; 93005; 80053; 80048; 82550; 82553; 83605 ×2; 83735; 84484; 85025; 85610; 85730; 81003; 87040; 87086; 83036; 71046; 70450; G0378 ×2; J1650

== ENCOUNTER → 2018-12-30 | Outpatient (CLI) | payer MEDICARE, OTHER ==
[2018-12-30 20:44] LABS: Albumin 4.4 g/dL (3.80-4.90); Albumin/Globulin Ratio 1.57 (1.60-3.17); Anion Gap 9.5 mmol/L (4.00-12.00); Calcium 9.5 mg/dL (8.7-10.3); Carbon Dioxide 24.5 mmol/L (21.6-31.8); Globulin 2.8 g/dL (1.6-3.3); LDL Cholesterol,Calculated 87.6 mg/dL (0.0-131.0); Potassium 4.6 mmol/L (3.5-5.5); Total Bilirubin 0.5 mg/dL (0.3-1.2); Total Protein 7.2 g/dL (6.2-8.2); VLDL Calculation 20.4 mg/dL (5.00-40.00)
[2018-12-30 23:38] LABS: Hemoglobin A1C 10.6 % (4.0-6.0)
== END | disposition home or self-care (01) ==
LOC: LABWHC1 12:34
PROVIDERS: ATTEND Internal Medicine
DX: E11.9 Type 2 diabetes mellitus without complications (principal)
CPT/HCPCS: 36415; 80053; 80061; 82043; 82570; 83036

== ENCOUNTER → 2019-01-28 | Outpatient (CLI) | payer MEDICARE, OTHER ==
--- NOTE | 2019-01-28 18:40 | ECHOF ---
Referral Reason:R55 syncope and collapse MEASUREMENTS -------- HEIGHT: 177.8 cm WEIGHT: 79.4 kg BP: RVIDd: 2.3 cm (< 3.3) IVSd: 1.3 cm (0.6 - 1.1) LVIDd: 4.0 cm (3.9 - 5.3) LVPWd: 1.3 cm (0.6 - 1.1) IVSs: 1.6 cm LVIDs: 2.7 cm LVPWs: 1.6 cm LAESV Index (A-L): 25.68 ml/m Ao Diam: 3.6 cm (2.0 - 3.7) AV Cusp: 1.8 cm (1.5 - 2.6) LA Diam: 2.3 cm (2.7 - 3.8) MV EXCURSION: 21.475 mm (> 18.000) MV EF SLOPE: 133 mm/s (70 - 150) EPSS: 0.8 cm MV E Rui: 0.71 m/s MV DecT: 264 ms MV A Rui: 0.66 m/s MV E/A Ratio: 1.09 RAP: 5.00 mmHg RVSP: 13.38 mmHg FINDINGS -------- Sinus rhythm. This was a technically adequate study. The left ventricular size is normal. There is mild concentric left ventricular hypertrophy. Overa ll left ventricular systolic function is low-normal with, an EF between 50 - 55 %. False Tendon Vis ualized in the LV The right ventricle is normal in size and function. Normal LA size by volume 22+/-6 ml/m2. RA appears enlarged. There is mild aortic valve sclerosis. There is no evidence of aortic regurgitation. There is no e vidence of aortic stenosis. The mitral valve leaflets are mildly thickened. There is trace mitral regurgitation. Trace tricuspid regurgitation present. Right ventricular systolic pressure is normal at < 35 mmHg. There is no evidence of pulmonary hypertension. Trace/mild (physiologic) pulmonic regurgitation. The aortic root size is normal. Normal inferior vena cava with normal inspiratory collapse consistent with estimated right atrial pre ssure of 5 mmHg. There is no pericardial effusion. CONCLUSIONS -------- 1. Sinus rhythm. 2. This was a technically adequate study. 3. The left ventricular size is normal. 4. There is mild concentric left ventricular hypertrophy. 5. Overall left ventricular systolic function is low-normal with, an EF between 50 - 55 %. 6. False Tendon Visualized in the LV 7. Normal LA size by volume 22+/-6 ml/m2. 8. RA appears enlarged. 9. There is mild aortic valve sclerosis. 10. The mitral valve leaflets are mildly thickened. 11. There is trace mitral regurgitation. 12. Trace tricuspid regurgitation present. 13. Right ventricular systolic pressure is normal at < 35 mmHg. 14. There is no evidence of pulmonary hypertension. 15. Trace/mild (physiologic) pulmonic regurgitation. 16. The aortic root size is normal. 17. There is no pericardial effusion. MEDICINAL CHEMIST: Franky Kennedy RDCS
== END | disposition home or self-care (01) ==
LOC: RADECHMAIN 11:44
PROVIDERS: ATTEND Internal Medicine
DX: I08.0 Rheumatic disorders of both mitral and aortic valves (principal)
CPT/HCPCS: 93306

== ENCOUNTER 2019-10-20 04:09 | Emergency (ER) | payer MEDICARE, OTHER ==
[2019-10-20 07:08] LABS: Appearance,Urine Clear (Clear); Bilirubin,Urine Negative (Negative); Blood,Urine Small (Negative); Color,Urine Light Yellow; Glucose,Urine (UA) Negative (Negative); Hyaline Casts,Urine 1 /lpf (0-2); Ketones,Urine Negative (Negative); Leukocyte Esterase,Urine Negative (Negative); Mucus,Urine Rare /hpf; Nitrite,Urine Negative (Negative); Protein,Urine Negative (Negative); RBC,Urine 5 /hpf (0-5); Specific Gravity,Urine 1.007 (1.001-1.035); Squamous Epithelial Cell,Urine <1 /hpf (0-4); Urobilinogen,Urine <2.0 mg/dL (<2.0); WBC,Urine 1 /hpf (0-5)
[2019-10-20 07:09] LABS: Albumin 4.5 g/dL (3.5-5.0); Calcium 9.4 mg/dL (8.4-10.2); Magnesium 1.8 mg/dL (1.6-2.3); T4, Free (Free Thyroxine) 1.36 ng/dL (0.78-2.19); Total Bilirubin 0.6 mg/dL (0.2-1.3); Total Protein 8.1 g/dL (6.3-8.2)
[2019-10-20 07:10] LABS: Basophils % (A) 0 %; Eosinophils % (A) 0 %; HCT 44.4 % (39.0-53.0); HGB 14.3 gm/dL (13.0-17.5); Lymphocytes # (A) 0.5 k/uL (1.0-4.8); Lymphocytes % (A) 6 %; MCH 29.3 pg (25.0-35.0); MCHC 32.3 g/dL (31.0-37.0); MCV 90.7 fL (80.0-100.0); Mean Platelet Volume 6.2; Monocytes # (A) 0.5 k/uL (0-1.0); Monocytes % (A) 5 %; Neutrophils # (A) 8.1 k/uL (1.3-7.7); Neutrophils % (A) 88 %; Platelet Count 209 k/uL (150-450); RDW 13.3 % (11.5-15.5); WBC 9.3 k/uL (3.8-10.6)
[2019-10-20 07:29] LABS: Partial Thromboplastin Time 25.9 sec (22.0-30.0)
--- NOTE | 2019-10-20 07:59 | XR ---
EXAM: XR Chest, 2 Views CLINICAL HISTORY: CHEST PAIN TECHNIQUE: Frontal and lateral views of the chest. COMPARISON: 06/24/2018. FINDINGS: Lungs: Essentially unchanged. No consolidation. Pleural space: Unremarkable. No pneumothorax. Heart: Unremarkable. No cardiomegaly. Mediastinum: Unremarkable. Bones/joints: Unremarkable. IMPRESSION: No radiographic evidence of acute cardiopulmonary process.
[2019-10-26 06:44] LABS: Glucose,Whole Blood 80 mg/dL (75-99)
[2019-10-26 06:48] LABS: Glucose,Whole Blood 84 mg/dL (75-99)
[2019-10-26 06:49] LABS: Glucose,Whole Blood 56 mg/dL (75-99)
== END 2019-10-20 07:48 | disposition home or self-care (01) ==
LOC: EC 04:09
DX: E11.649 Type 2 diabetes mellitus with hypoglycemia without coma (principal); T38.3X5A Adverse effect of insulin and oral hypoglycemic [antidiabetic] drugs, initial encounter; R00.0 Tachycardia, unspecified; Z89.429 Acquired absence of other toe(s), unspecified side; Z88.0 Allergy status to penicillin; Z86.73 Personal history of transient ischemic attack (TIA), and cerebral infarction without residual deficits
CPT/HCPCS: 36415; 71046; 80053; 81001; 82550; 83735; 84439; 84443; 84484; 85025; 85610; 85730; 99285

== ENCOUNTER → 2020-01-04 | Outpatient (CLI) | payer MEDICARE, OTHER ==
[2020-01-04 13:03] LABS: Basophils % (A) 1 %; Eosinophils # (A) 0.1 k/uL (0-0.7); Eosinophils % (A) 4 %; HGB 14.7 gm/dL (13.0-17.5); Lymphocytes # (A) 0.9 k/uL (1.0-4.8); Lymphocytes % (A) 23 %; MCH 28.6 pg (25.0-35.0); MCV 89.6 fL (80.0-100.0); Mean Platelet Volume 7.7; Monocytes # (A) 0.2 k/uL (0-1.0); Monocytes % (A) 6 %; Neutrophils # (A) 2.5 k/uL (1.3-7.7); Neutrophils % (A) 64 %; Platelet Count 193 k/uL (150-450); RBC 5.14 m/uL (4.30-5.90); RDW 12.5 % (11.5-15.5); WBC 3.9 k/uL (3.8-10.6)
[2020-01-04 22:26] LABS: African American GFR (CKD) 72.6 (60.0-200.0); Albumin 4.4 g/dL (3.80-4.90); Albumin/Globulin Ratio 1.83 (1.60-3.17); Anion Gap 9.6 mmol/L (4.00-12.00); BUN/Creat Ratio 17.5 Ratio (12.00-20.00); Calcium 9.2 mg/dL (8.7-10.3); Carbon Dioxide 25.4 mmol/L (21.6-31.8); Chol/HDL Ratio 3.9; Globulin 2.4 g/dL (1.6-3.3); Non-African American GFR(CKD) 62.6 (60.0-200.0); Potassium 4.4 mmol/L (3.5-5.5); Total Bilirubin 0.6 mg/dL (0.3-1.2); Total Protein 6.8 g/dL (6.2-8.2)
[2020-01-04 23:48] LABS: Hemoglobin A1C 10.4 % (4.0-6.0)
== END | disposition home or self-care (01) ==
LOC: LABWHC1 11:03
PROVIDERS: ATTEND Internal Medicine
DX: E11.9 Type 2 diabetes mellitus without complications (principal); I10 Essential (primary) hypertension; E78.2 Mixed hyperlipidemia
CPT/HCPCS: 36415; 80053; 80061; 83036; 84443; 85025

== ENCOUNTER → 2020-04-27 | Outpatient (CLI) | payer MEDICARE, OTHER ==
[2020-04-27 18:51] LABS: African American GFR (CKD) 72.6 (60.0-200.0); Anion Gap 10.3 mmol/L (4.00-12.00); BUN/Creat Ratio 23.33 Ratio (12.00-20.00); Calcium 8.8 mg/dL (8.7-10.3); Carbon Dioxide 24.7 mmol/L (21.6-31.8); Chol/HDL Ratio 2.78; LDL Cholesterol,Calculated 52.8 mg/dL (0.0-131.0); Non-African American GFR(CKD) 62.6 (60.0-200.0); Potassium 4.6 mmol/L (3.5-5.5); VLDL Calculation 13.2 mg/dL (5.00-40.00)
[2020-04-27 19:06] LABS: Hemoglobin A1C 6.4 % (4.0-6.0)
== END | disposition home or self-care (01) ==
LOC: LABWHC1 10:48
PROVIDERS: ATTEND Internal Medicine
DX: E11.65 Type 2 diabetes mellitus with hyperglycemia (principal)
CPT/HCPCS: 36415; 80048; 80061; 83036

== ENCOUNTER → 2020-09-27 | Outpatient (CLI) | payer MEDICARE, OTHER ==
[2020-09-27 12:30] LABS: Basophils % (A) 1 %; Eosinophils # (A) 0.2 k/uL (0-0.7); Eosinophils % (A) 3 %; HCT 49.2 % (39.0-53.0); HGB 15.4 gm/dL (13.0-17.5); Lymphocytes # (A) 0.9 k/uL (1.0-4.8); Lymphocytes % (A) 19 %; MCH 29.2 pg (25.0-35.0); MCHC 31.4 g/dL (31.0-37.0); MCV 92.9 fL (80.0-100.0); Mean Platelet Volume 7.8; Monocytes # (A) 0.3 k/uL (0-1.0); Monocytes % (A) 6 %; Neutrophils # (A) 3.4 k/uL (1.3-7.7); Neutrophils % (A) 70 %; Platelet Count 188 k/uL (150-450); RBC 5.29 m/uL (4.30-5.90); RDW 13.2 % (11.5-15.5); WBC 4.9 k/uL (3.8-10.6)
[2020-09-27 21:42] LABS: Hemoglobin A1C 6.2 % (4.0-6.0)
[2020-09-27 22:07] LABS: African American GFR (CKD) 89.9 (60.0-200.0); Albumin/Globulin Ratio 1.72 (1.60-3.17); Calcium 9.5 mg/dL (8.7-10.3); Chol/HDL Ratio 3.16; Globulin 2.9 g/dL (1.6-3.3); LDL Cholesterol,Calculated 78.6 mg/dL (0.0-131.0); Non-African American GFR(CKD) 77.5 (60.0-200.0); Potassium 4.6 mmol/L (3.5-5.5); Prostate Specific Antigen 1.7 ng/mL (0.0-4.5); Total Bilirubin 0.9 mg/dL (0.3-1.2); Total Protein 7.9 g/dL (6.2-8.2); VLDL Calculation 14.4 mg/dL (5.00-40.00)
== END | disposition home or self-care (01) ==
LOC: LABWHC1 09:50
PROVIDERS: ATTEND Nurse Practitioner Gerontology
DX: E11.9 Type 2 diabetes mellitus without complications (principal); E78.2 Mixed hyperlipidemia; N40.1 Benign prostatic hyperplasia with lower urinary tract symptoms
CPT/HCPCS: 36415; 80053; 80061; 83036; 84153; 84443; 85025

== ENCOUNTER 2021-04-03 22:14 | Inpatient (IN) | payer MEDICARE, OTHER ==
--- NOTE | 2021-04-03 22:36 | ED ---
Recheck HPI - General Stated Complaint: Hypoglycemia Time Seen by Provider: 04/03/21 22:35 Source: RN notes reviewed, old records reviewed Limitations: no limitations - History of Present Illness Initial Comments: This is a 65-year-old male who is a poor strain coming in for seizure and mental hyperglycemic. Patient is currently on seizure medications. Patient does have history of hyperglycemia recurrent. Is going to some blood sugar medication changes. Patient himself has no current symptoms as he is currently awake and alert history obtained by EMS and patient's prior charting MD Complaint: abnormal lab (Low blood sugar and have seizure) -: unknown Returns Today for: Called Because of Abnormal Lab/Test, other (Seizure activity) Symptoms Since Prior Visit: no new symptoms Context: called for abnormal lab result (Low blood sugar) Associated Symptoms: none Treatments Prior to Arrival: IV/IO, other - Related Data Home Medications Medication Instructions Recorded Confirmed Cholecalciferol [Vitamin D3 (25 50 mcg PO DAILY 08/04/14 04/04/21 Mcg = 1000 Iu)] Atorvastatin [Lipitor] 20 mg PO HS 02/04/18 04/04/21 Furosemide [Lasix] 20 mg PO DAILY 02/04/18 04/04/21 Metoprolol Tartrate [Lopressor] 25 mg PO BID 02/04/18 04/04/21 Tamsulosin [Flomax] 0.4 mg PO HS 02/04/18 04/04/21 Carbidopa-Levodopa 25-100 mg 1 tab PO TID 06/24/18 04/04/21 [Sinemet 25-100 mg] Thiamine [Vitamin B-1] 100 mg PO DAILY 06/24/18 04/04/21 Bacitracin Zinc Oint 1 applic TOPICAL BID 04/04/21 04/04/21 Insulin Glargine,Hum.rec.anlog 10 unit SQ HS 04/04/21 04/04/21 [Lantus Solostar] Insulin Lispro [humaLOG Kwikpen] See Protocol SQ AC-TID 04/04/21 04/04/21 Loperamide HCl [Imodium A-D] 2 - 4 mg PO QID PRN 04/04/21 04/04/21 Pioglitazone [Actos] 15 mg PO DAILY 04/04/21 04/04/21 hydrOXYzine HCL [Atarax] 20 mg PO HS 04/04/21 04/04/21 metFORMIN HCL 1,000 mg PO BID 04/04/21 04/04/21 Previous Rx's Medication Instructions Recorded levETIRAcetam [Keppra] 750 mg PO Q12HR #60 tab 04/05/21 Allergies Allergy/AdvReac Type Severity Reaction Status Date / Time Penicillins Allergy Rash/Hives Verified 06/24/18 07:59 Review of Systems ROS Statement: Those systems with pertinent positive or pertinent negative responses have been documented in the HPI. ROS Other: All systems not noted in ROS Statement are negative. 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 History of Any Multi-Drug Resistant Organisms: None Reported Past Surgical History: Appendectomy, Joint Replacement, Orthopedic Surgery Additional Past Surgical History / Comment(s): rt knee replacement, al foot sx,egd/colonoscopy, facial plastic sx, al cataracts Past Anesthesia/Blood Transfusion Reactions: No Reported Reaction Past Psychological History: No Psychological Hx Reported Additional Psychological History / Comment(s): developmentally delayed- pt alert and orientated x3, cog limitations, unable to read but able to write name Past Alcohol Use History: Abuse Additional Past Alcohol Use History / Comment(s): pt not sure of date he quit but stated it has been some time ago Past Drug Use History: None Reported - Past Family History Sister(s) Family Medical History: Cancer Father History Unknown: Yes Mother History Unknown: Yes General Exam Limitations: altered mental status General appearance: alert, in no apparent distress, lethargic, in distress Head exam: Present: atraumatic, normocephalic, normal inspection Eye exam: Present: normal appearance, PERRL, EOMI. Absent: scleral icterus, conjunctival injection, periorbital swelling ENT exam: Present: normal exam, mucous membranes moist Neck exam: Present: normal inspection. Absent: tenderness, meningismus, lymphadenopathy Respiratory exam: Present: normal lung sounds bilaterally. Absent: respiratory distress, wheezes, rales, rhonchi, stridor Cardiovascular Exam: Present: regular rate, normal rhythm, normal heart sounds. Absent: systolic murmur, diastolic murmur, rubs, gallop, clicks GI/Abdominal exam: Present: soft, normal bowel sounds. Absent: distended, tenderness, guarding, rebound, rigid Extremities exam: Present: normal inspection, full ROM, normal capillary refill. Absent: tenderness, pedal edema, joint swelling, calf tenderness Back exam: Present: normal inspection Neurological exam: Present: alert, oriented X3, CN II-XII intact Psychiatric exam: Present: normal affect, normal mood Skin exam: Present: warm, dry, intact, normal color. Absent: rash Course Vital Signs 04/03/21 04/04/21 04/04/21 22:55 00:14 03:41 Temperature 98.0 F Pulse Rate 52 L 93 78 Respiratory 18 18 18 Rate Blood Pressure 150/79 142/71 131/62 O2 Sat by Pulse 96 100 97 Oximetry - Reevaluation(s) Reevaluation #1: Medical record is reviewed Patient has no significant acute symptoms improving symptoms here in the ER Patient informed results and questions have been answered Patient has recurrent hypoglycemia here in the ER Medical Decision Making - Medical Decision Making 65 male DF for evaluation patient has seizure patient has low blood sugar histo ry of recurrent hypoglycemia will admit for recurrent hypoglycemia - Lab Data Result diagrams: 04/05/21 06:31 04/05/21 06:31 Lab Results 04/03/21 04/03/21 04/03/21 Range/Units 00:44 00:44 22:56 WBC 8.4 (3.8-10.6) k/uL RBC 5.03 (4.30-5.90) m/uL Hgb 14.6 (13.0-17.5) gm/dL Hct 43.9 (39.0-53.0) % MCV 87.2 (80.0-100.0) fL MCH 29.1 (25.0-35.0) pg MCHC 33.3 (31.0-37.0) g/dL RDW 13.0 (11.5-15.5) % Plt Count 173 (150-450) k/uL MPV 7.4 Neutrophils % 78 % Lymphocytes % 10 % Monocytes % 8 % Eosinophils % 1 % Basophils % 0 % Neutrophils # 6.5 (1.3-7.7) k/uL Lymphocytes # 0.9 L (1.0-4.8) k/uL Monocytes # 0.7 (0-1.0) k/uL Eosinophils # 0.1 (0-0.7) k/uL Basophils # 0.0 (0-0.2) k/uL Sodium 139 (137-145) mmol/L Potassium 4.1 (3.5-5.1) mmol/L Chloride 100 (98-107) mmol/L Carbon Dioxide 28 (22-30) mmol/L Anion Gap 11 mmol/L BUN 20 (9-20) mg/dL Creatinine 0.87 (0.66-1.25) mg/dL Est GFR (CKD-EPI)AfAm >90 (>60 ml/min/1.73 sqM) Est GFR (CKD-EPI)NonAf 90 (>60 ml/min/1.73 sqM) Glucose 93 (74-99) mg/dL POC Glucose (mg/dL) 53 L (75-99) mg/dL POC Glu Square Cutter ID Сергей Martinez Calcium 9.7 (8.4-10.2) mg/dL Total Bilirubin 0.6 (0.2-1.3) mg/dL AST 27 (17-59) U/L ALT 13 (4-49) U/L Alkaline Phosphatase 78 (38-126) U/L Total Protein 7.5 (6.3-8.2) g/dL Albumin 4.4 (3.5-5.0) g/dL Urine Color Urine Appearance (Clear) Urine pH (5.0-8.0) Ur Specific [place] (1.001-1.035) Urine Protein (Negative) Urine Glucose (UA) (Negative) Urine Ketones (Negative) Urine Blood (Negative) Urine Nitrite (Negative) Urine Bilirubin (Negative) Urine Urobilinogen (<2.0) mg/dL Ur Leukocyte Esterase (Negative) Salicylates <1.0 mg/dL Urine Opiates Screen (NotDetected) Ur Oxycodone Screen (NotDetected) Urine Methadone Screen (NotDetected) Ur Propoxyphene Screen (NotDetected) Acetaminophen <10.0 ug/mL Ur Barbiturates Screen (NotDetected) Phenytoin <3.0 ug/mL Valproic Acid <10.0 ug/mL Carbamazepine <3.0 ug/mL U Tricyclic Antidepress (NotDetected) Ur Phencyclidine Scrn (NotDetected) Ur Amphetamines Screen (NotDetected) U Methamphetamines Scrn (NotDetected) U Benzodiazepines Scrn (NotDetected) Urine Cocaine Screen (NotDetected) U Marijuana (THC) Screen (NotDetected) Serum Alcohol <10 mg/dL Coronavirus (PCR) (Not Detectd) 04/03/21 04/03/21 04/04/21 Range/Units 23:07 23:42 00:04 WBC (3.8-10.6) k/uL RBC (4.30-5.90) m/uL Hgb (13.0-17.5) gm/dL Hct (39.0-53.0) % MCV (80.0-100.0) fL MCH (25.0-35.0) pg MCHC (31.0-37.0) g/dL RDW (11.5-15.5) % Plt Count (150-450) k/uL MPV Neutrophils % % Lymphocytes % % Monocytes % % Eosinophils % % Basophils % % Neutrophils # (1.3-7.7) k/uL Lymphocytes # (1.0-4.8) k/uL Monocytes # (0-1.0) k/uL Eosinophils # (0-0.7) k/uL Basophils # (0-0.2) k/uL Sodium (137-145) mmol/L Potassium (3.5-5.1) mmol/L Chloride (98-107) mmol/L Carbon Dioxide (22-30) mmol/L Anion Gap mmol/L BUN (9-20) mg/dL Creatinine (0.66-1.25) mg/dL Est GFR (CKD-EPI)AfAm (>60 ml/min/1.73 sqM) Est GFR (CKD-EPI)NonAf (>60 ml/min/1.73 sqM) Glucose (74-99) mg/dL POC Glucose (mg/dL) 78 78 (75-99) mg/dL POC Glu [employer] Cutter Barbara Thornton Ashley Calcium (8.4-10.2) mg/dL Total Bilirubin (0.2-1.3) mg/dL AST (17-59) U/L ALT (4-49) U/L Alkaline Phosphatase (38-126) U/L Total Protein (6.3-8.2) g/dL Albumin (3.5-5.0) g/dL Urine Color Light Yellow Urine Appearance Clear (Clear) Urine pH 5.0 (5.0-8.0) Ur Specific [place] 1.009 (1.001-1.035) Urine Protein Negative (Negative) Urine Glucose (UA) 2+ H (Negative) Urine Ketones Negative (Negative) Urine Blood Negative (Negative) Urine Nitrite Negative (Negative) Urine Bilirubin Negative (Negative) Urine Urobilinogen <2.0 (<2.0) mg/dL Ur Leukocyte Esterase Negative (Negative) Salicylates mg/dL Urine Opiates Screen Not Detected (NotDetected) Ur Oxycodone Screen Not Detected (NotDetected) Urine Methadone Screen Not Detected (NotDetected) Ur Propoxyphene Screen Not Detected (NotDetected) Acetaminophen ug/mL Ur Barbiturates Screen Not Detected (NotDetected) Phenytoin ug/mL Valproic Acid ug/mL Carbamazepine ug/mL U Tricyclic Antidepress Not Detected (NotDetected) Ur Phencyclidine Scrn Not Detected (NotDetected) Ur Amphetamines Screen Not Detected (NotDetected) U Methamphetamines Scrn Not Detected (NotDetected) U Benzodiazepines Scrn Not Detected (NotDetected) Urine Cocaine Screen Not Detected (NotDetected) U Marijuana (THC) Screen Not Detected (NotDetected) Serum Alcohol mg/dL Coronavirus (PCR) (Not Detectd) 04/04/21 04/04/21 Range/Units 00:45 00:46 WBC (3.8-10.6) k/uL RBC (4.30-5.90) m/uL Hgb (13.0-17.5) gm/dL Hct (39.0-53.0) % MCV (80.0-100.0) fL MCH (25.0-35.0) pg MCHC (31.0-37.0) g/dL RDW (11.5-15.5) % Plt Count (150-450) k/uL MPV Neutrophils % % Lymphocytes % % Monocytes % % Eosinophils % % Basophils % % Neutrophils # (1.3-7.7) k/uL Lymphocytes # (1.0-4.8) k/uL Monocytes # (0-1.0) k/uL Eosinophils # (0-0.7) k/uL Basophils # (0-0.2) k/uL Sodium (137-145) mmol/L Potassium (3.5-5.1) mmol/L Chloride (98-107) mmol/L Carbon Dioxide (22-30) mmol/L Anion Gap mmol/L BUN (9-20) mg/dL Creatinine (0.66-1.25) mg/dL Est GFR (CKD-EPI)AfAm (>60 ml/min/1.73 sqM) Est GFR (CKD-EPI)NonAf (>60 ml/min/1.73 sqM) Glucose (74-99) mg/dL POC Glucose (mg/dL) 96 (75-99) mg/dL POC Glu Square Cutter ID Barbara Garber Calcium (8.4-10.2) mg/dL Total Bilirubin (0.2-1.3) mg/dL AST (17-59) U/L ALT (4-49) U/L Alkaline Phosphatase (38-126) U/L Total Protein (6.3-8.2) g/dL Albumin (3.5-5.0) g/dL Urine Color Urine Appearance (Clear) Urine pH (5.0-8.0) Ur Specific [place] (1.001-1.035) Urine Protein (Negative) Urine Glucose (UA) (Negative) Urine Ketones (Negative) Urine Blood (Negative) Urine Nitrite (Negative) Urine Bilirubin (Negative) Urine Urobilinogen (<2.0) mg/dL Ur Leukocyte Esterase (Negative) Salicylates mg/dL Urine Opiates Screen (NotDetected) Ur Oxycodone Screen (NotDetected) Urine Methadone Screen (NotDetected) Ur Propoxyphene Screen (NotDetected) Acetaminophen ug/mL Ur Barbiturates Screen (NotDetected) Phenytoin ug/mL Valproic Acid ug/mL Carbamazepine ug/mL U Tricyclic Antidepress (NotDetected) Ur Phencyclidine Scrn (NotDetected) Ur Amphetamines Screen (NotDetected) U Methamphetamines Scrn (NotDetected) U Benzodiazepines Scrn (NotDetected) Urine Cocaine Screen (NotDetected) U Marijuana (THC) Screen (NotDetected) Serum Alcohol mg/dL Coronavirus (PCR) Not Detected (Not Detectd) - EKG Data -: EKG Interpreted by Me (EKG shows sinus rhythm 95. 190 QRS QRS 86 QTc 457) Disposition Clinical Impression: Recurrent seizures, Hypoglycemia Disposition: ADMITTED IP TO THIS HOSP Condition: Fair Is patient prescribed a controlled substance at d/c from ED?: No
[2021-04-03] MEDS ORDERED: DEXTROSE 5%-0.45% NACL 1,000 ML IV ONE (22:53)
[2021-04-03 22:58] LABS: Glucose,Whole Blood 53 mg/dL (75-99)
[2021-04-03] MEDS ORDERED: DEXTROSE 50% SYRINGE 50 ML IVP STA (23:03)
[2021-04-03 23:43] LABS: Glucose,Whole Blood 78 mg/dL (75-99)
--- NOTE | 2021-04-03 23:48 | CT ---
EXAMINATION TYPE: CT brain wo con DATE OF EXAM: 04/03/2021 COMPARISON: 06/24/2018 HISTORY: seizure CT DLP: 1233.4 mGycm Automated exposure control for dose reduction was used. There is some cerebral cortical atrophy. There is no mass effect nor midline shift. There is no sign of intracranial hemorrhage. The calvarium is intact. There is no evidence of cerebral edema. Skull ba se is intact. There is no evidence of bony destructive process. Sella turcica appears normal. IMPRESSION: Cerebral atrophy. No acute intracranial abnormality. No change.
[2021-04-04 00:07] LABS: Appearance,Urine Clear (Clear); Bilirubin,Urine Negative (Negative); Blood,Urine Negative (Negative); Color,Urine Light Yellow; Glucose,Urine (UA) 2+ (Negative); Ketones,Urine Negative (Negative); Leukocyte Esterase,Urine Negative (Negative); Nitrite,Urine Negative (Negative); Protein,Urine Negative (Negative); Specific Gravity,Urine 1.009 (1.001-1.035); Urobilinogen,Urine <2.0 mg/dL (<2.0)
[2021-04-04 00:16] LABS: Glucose,Whole Blood 78 mg/dL (75-99)
[2021-04-04 00:26] LABS: Amphetamine Screen,Urine Not Detected (NotDetected); Barbiturate Screen,Urine Not Detected (NotDetected); Benzodiazepines Screen,Urine Not Detected (NotDetected); Cocaine Screen,Urine Not Detected (NotDetected); Methadone Screen, Urine Not Detected (NotDetected); Opiate Screen,Urine Not Detected (NotDetected); Oxycodone Screen, Urine Not Detected (NotDetected); Phencyclidine Screen,Urine Not Detected (NotDetected); Tricyclic Antidepressant,Urine Not Detected (NotDetected); Urn Cannabinoid Scrn Not Detected (NotDetected)
[2021-04-04 00:48] LABS: Glucose,Whole Blood 96 mg/dL (75-99)
[2021-04-04 01:22] LABS: Basophils % (A) 0 %; Eosinophils # (A) 0.1 k/uL (0-0.7); Eosinophils % (A) 1 %; HCT 43.9 % (39.0-53.0); HGB 14.6 gm/dL (13.0-17.5); Lymphocytes # (A) 0.9 k/uL (1.0-4.8); Lymphocytes % (A) 10 %; MCH 29.1 pg (25.0-35.0); MCHC 33.3 g/dL (31.0-37.0); MCV 87.2 fL (80.0-100.0); Mean Platelet Volume 7.4; Monocytes # (A) 0.7 k/uL (0-1.0); Monocytes % (A) 8 %; Neutrophils # (A) 6.5 k/uL (1.3-7.7); Neutrophils % (A) 78 %; Platelet Count 173 k/uL (150-450); RBC 5.03 m/uL (4.30-5.90); WBC 8.4 k/uL (3.8-10.6)
[2021-04-04] MEDS ORDERED: NALOXONE 0.4 MG/ML 1 ML VIAL IV PRN (01:27)
[2021-04-04] MEDS ORDERED: ONDANSETRON 4 MG/2 ML VIAL IVP PRN ×2 (01:33→14:20)
[2021-04-04] MEDS ORDERED: MORPHINE SULFATE 4 MG/ML SYRINGE IV PRN (01:33)
[2021-04-04 01:51] LABS: ALT 13 U/L (4-49); AST 27 U/L (17-59); Acetaminophen <10.0 ug/mL; African American GFR (CKD) >90 (>60 ml/min/1.73 sqM); Albumin 4.4 g/dL (3.5-5.0); Alcohol <10 mg/dL; Alkaline Phosphatase 78 U/L (38-126); Anion Gap 11 mmol/L; Blood Urea Nitrogen 20 mg/dL (9-20); Calcium 9.7 mg/dL (8.4-10.2); Carbamazepine (Tegretol) <3.0 ug/mL; Carbon Dioxide 28 mmol/L (22-30); Chloride 100 mmol/L (98-107); Glucose 93 mg/dL (74-99); Non-African American GFR(CKD) 90 (>60 ml/min/1.73 sqM); Phenytoin (Dilantin) <3.0 ug/mL; Potassium 4.1 mmol/L (3.5-5.1); Salicylate <1.0 mg/dL; Sodium 139 mmol/L (137-145); Total Bilirubin 0.6 mg/dL (0.2-1.3); Total Protein 7.5 g/dL (6.3-8.2)
[2021-04-04 01:53] LABS: Valproic Acid (Depakene) <10.0 ug/mL
[2021-04-04] MEDS ORDERED: levETIRAcetam IV 1,000 MG in SALINE 1 100ML.BAG IVPB ONE (02:00)
[2021-04-04 03:45] LABS: Glucose,Whole Blood 218 mg/dL (75-99)
[2021-04-04] MEDS ORDERED: PIOGLITAZONE 15 MG TAB PO SCH (09:00)
[2021-04-04] MEDS ORDERED: LEVETIRACETAM 500 MG PO SCH (09:00)
[2021-04-04] MEDS: FUROSEMIDE 20 MG TAB PO SCH (09:20)
[2021-04-04] MEDS: METOPROLOL TARTRATE 25 MG TAB PO SCH ×2 (09:20→20:40)
[2021-04-04] MEDS: THIAMINE 100 MG TAB PO SCH (09:20)
[2021-04-04] MEDS: CHOLECALCIFEROL 25 MCG (1000 IU) TABLET PO SCH (09:20)
[2021-04-04] MEDS: CARBIDOPA-LEVODOPA 25-100 MG 1 EACH TAB PO SCH ×3 (09:20→20:40)
[2021-04-04] MEDS: metFORMIN 500 MG TAB PO SCH ×2 (09:21→17:14)
[2021-04-04] MEDS ORDERED: levETIRAcetam 500 MG TAB PO SCH (11:45)
--- NOTE | 2021-04-04 11:48 | P.CNNES ---
History of Present Illness Consult date: 04/04/21 Requesting physician: Mikie Guillen Reason for Consult: seizure History of Present Illness: This is a 65-year-old gentleman with medical history of seizure disorder, developmental delay, diabetes, sleep apnea, polio as a child that presented to the emergency department on 04/03/2021 and per the ED notes the complete was hypoglycemia. Some of the history is obtained from the patient's nurse who spoke with family members (Mary Alice Martinez who is his cousin). Per the patient he has history of seizures and he's been taking Keppra 500 mg daily and that seems that he had a seizure. He could not describe the seizure. Per the patient nurse seems that the patient had generalized tonic-clonic seizure and unknown duration. His family member notified the nurse that his last seizure was about of 5 years ago. Patient states that he's been compliant taking the medication and to his knowledge. Patient stated that he follows up with Dr. Tenzin Simon for neurological care. He said that he gets around using a cane or walker. He appropriately stated that he did have the polio as a child and had surgery on his ankle. Patient home medication is Keppra 500 mg daily according to home list but per his cousin on 500mg 1 tab bid, and that's the only medication I see that the patient is on the procedure other than that [place] [address] one tablet 3 times a day rest are diabetic blood pressure cholesterol medication. Some of the workup in the hospital consisted of: Initial vital signs: Blood pressure of 150/79, heart rate of 52, temperature of 98.0 Fahrenheit, respiratory of 18, pulse ox of [address] of the head is reported as cerebral atrophy. No acute intracranial abnormality. No change. White blood cell was normal was 8.4. Initial POC glucose was 53. Otherwise the glucose has been in the range of 76 at 218. The rest of the basic electrolytes were reviewed and nothing stood out. Urine drug screen and the is nondetected. This facility is less than 1, seen within the less than 10, phenytoin is less than 3, valproic less than 10, carbamazepine is less than 3 and a history of alcohol as less than 10 Urinalysis is negative for urinary tract infection. Coronavirus PCR is not detected. Review of Systems Review of system: The 12 point system was reviewed and apparent positive and negative per HPI. 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 History of Any Multi-Drug Resistant Organisms: None Reported Past Surgical History: Appendectomy, Joint Replacement, Orthopedic Surgery Additional Past Surgical History / Comment(s): rt knee replacement, al foot sx,egd/colonoscopy, facial plastic sx, al cataracts Past Anesthesia/Blood Transfusion Reactions: No Reported Reaction Past Psychological History: No Psychological Hx Reported Additional Psychological History / Comment(s): developmentally delayed- pt alert and orientated x3, cog limitations, unable to read but able to write name Smoking Status: Never smoker Past Alcohol Use History: None Reported Additional Past Alcohol Use History / Comment(s): Pt stated that he quit drinking when he was 15 years old Past Drug Use History: None Reported - Past Family History Sister(s) Family Medical History: Cancer Father History Unknown: Yes Mother History Unknown: Yes Medications and Allergies Home Medications Medication Instructions Recorded Confirmed Type Cholecalciferol [Vitamin D3 (25 50 mcg PO DAILY 08/04/14 04/04/21 History Mcg = 1000 Iu)] Atorvastatin [Lipitor] 20 mg PO HS 02/04/18 04/04/21 History Furosemide [Lasix] 20 mg PO DAILY 02/04/18 04/04/21 History Metoprolol Tartrate [Lopressor] 25 mg PO BID 02/04/18 04/04/21 History Tamsulosin [Flomax] 0.4 mg PO HS 02/04/18 04/04/21 History Carbidopa-Levodopa 25-100 mg 1 tab PO TID 06/24/18 04/04/21 History [Sinemet 25-100 mg] Thiamine [Vitamin B-1] 100 mg PO DAILY 06/24/18 04/04/21 History Bacitracin Zinc Oint 1 applic TOPICAL BID 04/04/21 04/04/21 History Insulin Glargine,Hum.rec.anlog 10 unit SQ HS 04/04/21 04/04/21 History [Lantus Solostar] Insulin Lispro [humaLOG Kwikpen] See Protocol SQ AC-TID 04/04/21 04/04/21 History Loperamide HCl [Imodium A-D] 2 - 4 mg PO QID PRN 04/04/21 04/04/21 History Pioglitazone [Actos] 15 mg PO DAILY 04/04/21 04/04/21 History hydrOXYzine HCL [Atarax] 20 mg PO HS 04/04/21 04/04/21 History levETIRAcetam [levETIRAcetam ER] 500 mg PO DAILY 04/04/21 04/04/21 History metFORMIN HCL 1,000 mg PO BID 04/04/21 04/04/21 History Allergies Allergy/AdvReac Type Severity Reaction Status Date / Time Penicillins Allergy Rash/Hives Verified 06/24/18 07:59 Physical Examination - Vital Signs Vital Signs: Vital Signs Temp Pulse Pulse Resp BP BP Pulse Ox 04/04/21 07:44 99 04/04/21 07:22 98.8 F 78 18 145/69 100 04/04/21 03:56 99.0 F 76 16 147/77 98 04/04/21 03:41 78 18 131/62 97 04/04/21 00:14 93 18 142/71 100 04/03/21 22:55 98.0 F 52 L 18 150/79 96 Intake and Output 04/03/21 04/04/21 04/04/21 22:59 06:59 14:59 Other: Voiding Method Toilet Urinal # Voids 1 # Bowel Movements 1 Weight 90.718 kg 90.718 kg GENERAL: The patient is lying in bed and is not in acute distress. CHEST: The heart rate is regular rate rhythm. No murmurs to auscultation. LUNG: Clear to auscultation bilaterally no wheezing noted throughout. Not labored breathing. ABDOMEN/GI: Bowel sounds present in all 4 quadrants. No tenderness to palpation throughout. NEUROLOGICAL: Higher mental function: The patient is awake, alert, oriented to self, place and time. Patient is able to identify objects (pen and watch) correctly. Patient is following simple commands. No aphasia and no neglect. Cranial nerves: The pupils are round, equal and reactive to light. Visual zuniga are full to confrontation throughout. Extraocular movement are restricted in movement looking to right or left but is able to look up and down (chronic per patient). Facial sensation is normal to touch throughout. The facial strength is mild left nasolabial flattening. Hearing is normal bilaterally to hand rub. Tongue is midline and moved [id number] without any difficulty. Patient has some orobucal dyskinetic movment. Has mild dysarthria. Shoulder shrug is normal bilaterally. Motor: The strength is 5-/5 throughout. Has decrease bulk in distal lower extremities bilaterally. . Cerebellum: Normal finger to nose bilaterally. Sensation: Sensation is normal to touch throughout. Reflexes (right/left):2+ upper while lower are 1+ lowers.. Plantars are mute bilaterally. Results - Laboratory Findings CBC and BMP: 04/03/21 00:44 04/03/21 00:44 Abnormal Lab Findings: Abnormal Labs 04/03/21 04/03/21 04/03/21 00:44 22:56 23:07 Lymphocytes # 0.9 L POC Glucose (mg/dL) 53 L Urine Glucose (UA) 2+ H 04/04/21 03:33 Lymphocytes # POC Glucose (mg/dL) 218 H Urine Glucose (UA) Assessment and Plan Assessment: Breakthrough seizure (seems provoked from hypoglycemia with sugar was 53 on presentation) History of seizure disorder Developmental delay Episode of hypoglycemia Parkinson's disease History of Polio Diabetes mellitus Sleep apnea Plan: CT of the head is reported as cerebral atrophy. No acute intracranial abnormality. No change. In the ED the patient was given a loading dose of Keppra thousand milligrams then the was started on Keppra 1000mg every 12 hours. I'll decrease the Keppra from thousand milligrams every 12 hours to 500mg every 12 hours to 750mg 1 tab bid. I ordered a routine EEG. Please avoid any further hypoglycemic event and will defer management to the primary team. We'll defer the rest of the medical measure to the primary team. Upon discharge the patient needs to follow-up with a neurologist as an outpatient within 1-2 weeks (Dr. Tenzin Simon). Thank you For the consultation. Dawit Phillips MD Neuro-Hospitalist Time with Patient: Greater than 30
[2021-04-04 12:18] LABS: Glucose,Whole Blood 145 mg/dL (75-99)
[2021-04-04] MEDS: INSULIN ASPART (NovoLOG) 100 UNIT/ML VIAL SQ SCH ×3 (12:35→20:36)
--- NOTE | 2021-04-04 14:17 | P.HPIM ---
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 According to the cousin patient was having his dinner and started b anging on the plate. Cousin laid the patient on the floor and within a few seconds patient started having tonic-clonic seizure that lasted 5 minutes. Patient's glucose prior to his dinner was 111 and patient was given 3 units by the cousin On arrival of the EMS patient's blood sugar was 42 he received a dose of glucagon. Patient's blood sugar was 53 in the ER. He was given a dose of D50 amp and was started on dextrose half tenderness at 100 mL per hour. His seizure dose of Keppra 1000 followed by 1000 mg every 12 hours. Patient was seen by neurology who has recommended EEG and an increase in his Keppra dosing. Patient follows with Dr. Simon and the last seizure was one to 2 years ago when patient was started on Keppra. According to the cousin patient's sugar usually stays in the 400 and he sees plant operations worker. In assessment of patient's vital in the ER patient had a temp 98 pulse 52 respiratory rate 15 blood pressure 150/70. Labs were reviewed patient's hemoglobin is 14.1 WBC 8.4 platelet 173 CMP was unremarkable. Repeat blood sugar is 145. Patient evaluated today denie s any dizziness or chest pain and breathing difficulty. He has no rigidity or neck stiffness. He denies any fever or chills. Review of Systems Constitutional: Denies chills, Denies fever, Denies lethargy, Denies malaise, Denies poor appetite, Denies weakness, Denies weight loss Eyes: denies decreased vision, denies diplopia, denies discharge, denies pain Ears: deny: decreased hearing Ears, nose, mouth and throat: Denies dental pain, Denies headache, Denies nasal discharge, Denies nose pain Cardiovascular: Denies chest pain, Denies decreased exercise tolerance, Denies edema, Denies high blood pressure, Denies irregular heart beat, Denies palpitations, Denies paroxysmal nocturnal dyspnea, Denies rapid heart beat, Denies shortness of breath Respiratory: Denies congestion, Denies cough, Denies cough with sputum, Denies dyspnea, Denies home oxygen, Denies wheezing Gastrointestinal: Denies abdominal pain, Denies change in bowel habits, Denies coffee ground emesis, Denies early satiety, Denies excessive gas, Denies heartburn, Denies hematemesis, Denies hematochezia, Denies loss of appetite, Denies nausea, Denies vomiting Genitourinary: Denies dysuria, Denies flank pain, Denies kidney stones, Denies menorrhagia, Denies urgency, Denies urinary frequency Musculoskeletal: Denies gait dysfunction, Denies limitation of motion, Denies morning stiffness, Denies muscle cramps Integumentary: Denies rash, Denies wounds, Denies brittle nails, Denies change in hair/nails, Denies darkening of skin Neurological: Uses cane at baseline, has slurring of speech that is chronic, lack of peripheral vision that is chronic , Denies loss of vision, Denies motor disturbance, Denies numbness, Denies paralysis, Denies paresthesias, endorses seizure Psychiatric: Denies anxiety, Denies depression Endocrine: Denies excessive sweating, Denies excessive thirst, endorses high blood sugars Denies palpitations Hematologic/Lymphatic: Denies easy bruising, Denies lymphadenopathy Past Medical History Past Medical History: Diabetes Mellitus, GERD/Reflux, Hyperlipidemia, Hypertension, Memory Impairment, Osteoarthritis (OA), Prostate Disorder, Seizure Disorder, Sleep Apnea/CPAP/BIPAP Additional Past Medical History / Comment(s): Parkinsons; mentally delayed from states caregiver,gerd previously charted -pt not sure of this, uses cpap machine, gout 2006, had polio as child used to wear leg braces, colon polyps benign. History of Any Multi-Drug Resistant Organisms: None Reported Past Surgical History: Appendectomy, Joint Replacement, Orthopedic Surgery Additional Past Surgical History / Comment(s): rt knee replacement, al foot sx,egd/colonoscopy, facial plastic sx, al cataracts Past Anesthesia/Blood Transfusion Reactions: No Reported Reaction Past Psychological History: No Psychological Hx Reported Additional Psychological History / Comment(s): developmentally delayed- pt alert and orientated x3, cog limitations, unable to read but able to write name Smoking Status: Never smoker Past Alcohol Use History: None Reported Additional Past Alcohol Use History / Comment(s): Pt stated that he quit drinking when he was 15 years old Past Drug Use History: None Reported - Past Family History Sister(s) Family Medical History: Cancer Father History Unknown: Yes Mother History Unknown: Yes Medications and Allergies Home Medications Medication Instructions Recorded Confirmed Type Cholecalciferol [Vitamin D3 (25 50 mcg PO DAILY 08/04/14 04/04/21 History Mcg = 1000 Iu)] Atorvastatin [Lipitor] 20 mg PO HS 02/04/18 04/04/21 History Furosemide [Lasix] 20 mg PO DAILY 02/04/18 04/04/21 History Metoprolol Tartrate [Lopressor] 25 mg PO BID 02/04/18 04/04/21 History Tamsulosin [Flomax] 0.4 mg PO HS 02/04/18 04/04/21 History Carbidopa-Levodopa 25-100 mg 1 tab PO TID 06/24/18 04/04/21 History [Sinemet 25-100 mg] Thiamine [Vitamin B-1] 100 mg PO DAILY 06/24/18 04/04/21 History Bacitracin Zinc Oint 1 applic TOPICAL BID 04/04/21 04/04/21 History Insulin Glargine,Hum.rec.anlog 10 unit SQ HS 04/04/21 04/04/21 History [Lantus Solostar] Insulin Lispro [humaLOG Kwikpen] See Protocol SQ AC-TID 04/04/21 04/04/21 History Loperamide HCl [Imodium A-D] 2 - 4 mg PO QID PRN 04/04/21 04/04/21 History Pioglitazone [Actos] 15 mg PO DAILY 04/04/21 04/04/21 History hydrOXYzine HCL [Atarax] 20 mg PO HS 04/04/21 04/04/21 History levETIRAcetam [levETIRAcetam ER] 500 mg PO DAILY 04/04/21 04/04/21 History metFORMIN HCL 1,000 mg PO BID 04/04/21 04/04/21 History Allergies Allergy/AdvReac Type Severity Reaction Status Date / Time Penicillins Allergy Rash/Hives Verified 06/24/18 07:59 Physical Exam Vitals: Vital Signs Temp Pulse Pulse Resp BP BP Pulse Ox 04/04/21 07:44 99 04/04/21 07:22 98.8 F 78 18 145/69 100 04/04/21 03:56 99.0 F 76 16 147/77 98 04/04/21 03:41 78 18 131/62 97 04/04/21 00:14 93 18 142/71 100 04/03/21 22:55 98.0 F 52 L 18 150/79 96 Intake and Output 04/03/21 04/04/21 04/04/21 22:59 06:59 14:59 Other: Voiding Method Toilet Urinal # Voids 1 # Bowel Movements 1 Weight 90.718 kg 90.718 kg - Constitutional General appearance: cooperative, no acute distress, appears stated age - EENT Eyes: anicteric sclerae, PERRLA, droopy eyelids, extraocular movement restricted to the right and left. Tremors noted in the tongue, speech is not clear Extraocular movement up forward and downward Patient is not able to close his eyes completely - Neck Neck: no lymphadenopathy, normal ROM, no other, no rigidity, no stridor, no thyromegaly - Respiratory Respiratory: bilateral: CTA, negative: diminished, dullness, rales, rhonchi - Cardiovascular Rhythm: regular Heart sounds: normal: S1, S2 Abnormal Heart Sounds: no systolic murmur, no diastolic murmur, no rub, no S3 Gallop, no S4 Gallop, no click, no other - Gastrointestinal General gastrointestinal: normal bowel sounds, soft nontender - Integumentary Integumentary: no rash - Neurologic Neurologic: No motor or sensory deficit, dysarthria noted which is chronic, extraocular movement is restricted. Sixth nervepalsy bilaterally - Musculoskeletal Musculoskeletal: Ataxic, strength equal bilaterally - Psychiatric Psychiatric: A&O x's 3, appropriate affect Results CBC & Chem 7: 04/03/21 00:44 04/03/21 00:44 Labs: Abnormal Lab Results - Last 24 Hours (Table) 04/03/21 04/03/21 04/03/21 Range/Units 00:44 22:56 23:07 Lymphocytes # 0.9 L (1.0-4.8) k/uL POC Glucose (mg/dL) 53 L (75-99) mg/dL Urine Glucose (UA) 2+ H (Negative) 04/04/21 Range/Units 03:33 Lymphocytes # (1.0-4.8) k/uL POC Glucose (mg/dL) 218 H (75-99) mg/dL Urine Glucose (UA) (Negative) Thrombosis Risk Factor Assmnt - DVT/VTE Prophylaxis DVT/VTE Prophylaxis: Pharmacologic Prophylaxis ordered - Choose All That Apply Any of the Below Risk Factors Present?: No Other Risk Factors: Yes Each Risk Factor Represents 2 Points: Age 61-74 years Other congenital or acquired thrombophilia - If yes, enter type in comment: No Thrombosis Risk Factor Assessment Total Risk Factor Score: 2 Thrombosis Risk Factor Assessment Level: Low Risk Assessment and Plan Plan: #1 seizure likely secondary to hypoglycemia with underlying history of seizure disorder. Before meals at bedtime glucose monitoring. Patient takes Keppra 500 twice daily at home. Neurology consulted for possible adjustment of Keppra dosing. EEG obtained. CT head negative for any acute abnormality. Neuro checks every shift #2 type 2 diabetes uncontrolled with hyperglycemia with diabetic neuropathy. Continue metformin, hold Actos, hold Lantus. Continue insulin sliding scale. #3 hyperlipidemia continue Lipitor 20 mg by mouth daily #4 hypertension continue metoprolol 25 twice a day. Lasix 20 mg daily #5 BPH continue Flomax at 0.4 mg by mouth daily #6 obstructive sleep apnea on CPAP, stable #7 Parkinson disease continue Sinemet 25/100 3 times a day #8 CODE STATUS full code #9 DVT prophylaxis with heparin every 12 #10 GERD Pepcid 20 mg by mouth daily #11 history of polio with restricted peripheral vision and dysarthria , chronic #12 development delay under the care of caregiver #13 disposition patient need 1-2 inpatient nights for stabilization
[2021-04-04] MEDS ORDERED: ACETAMINOPHEN TAB 325 MG TAB PO PRN (14:20)
[2021-04-04] MEDS ORDERED: levETIRAcetam IV 1,000 MG in SALINE 1 100ML.BAG IVPB SCH (15:00)
[2021-04-04] MEDS: HEPARIN SODIUM,PORCINE/PF 5,000 UNIT/0.5 ML SYRINGE SQ SCH (15:44)
--- NOTE | 2021-04-04 15:54 | EEG ---
ELECTROENCEPHALOGRAM REPORT DATE OF SERVICE: 04/04/2021. CLINICAL HISTORY: This is a 65-year-old gentleman with a history of epilepsy who presented for a breakthrough seizure. This video EEG is obtained to evaluate for seizure and epileptiform activity. Relevant medication is Keppra. EEG TYPE: A routine 21-channel EEG was performed with video using the 10/20 electrode placement system. DESCRIPTION: Wakefulness and drowsiness are obtained. During wakefulness, there is a posterior- dominant rhythm of low to moderate voltage, reactive, well modulated, of 8.5 hertz activity. During drowsiness there is slowing and attenuation of the background activity. There is no physiological stage II sleep architecture seen over bilateral hemispheres. There is no focal slowing. Interictal and ictal: None. ACTIVATION PROCEDURE: Photic stimulation did not evoke a posterior driving response. There is no abnormality during the photic stimulation. Hyperventilation is not performed. CLINICAL INTERPRETATION: This is a normal routine EEG. There are no focal slowing, epileptiform discharges or seizures on the EEG. Clinical correlation is recommended. MMCELINA / YULIYA: [id number] / MTDD
[2021-04-04 16:40] LABS: Glucose,Whole Blood 153 mg/dL (75-99)
[2021-04-04 20:35] LABS: Glucose,Whole Blood 124 mg/dL (75-99)
[2021-04-04] MEDS ORDERED: TAMSULOSIN 0.4 MG CAP.ER.24H PO SCH (21:00)
[2021-04-04] MEDS ORDERED: hydrOXYzine HCL 10 MG TAB PO SCH (21:00)
[2021-04-04] MEDS ORDERED: INSULIN DETEMIR (LEVEMIR) 100 UNIT/ML SYR SQ SCH (21:00)
[2021-04-04] MEDS ORDERED: ATORVASTATIN 20 MG TAB PO SCH (21:00)
[2021-04-05] MEDS: HEPARIN SODIUM,PORCINE/PF 5,000 UNIT/0.5 ML SYRINGE SQ SCH ×2 (01:33→13:33)
[2021-04-05 05:26] LABS: Hemoglobin A1C 6.5 % (4.0-6.0)
[2021-04-05 07:21] LABS: Glucose,Whole Blood 107 mg/dL (75-99)
[2021-04-05 07:30] LABS: Basophils % (A) 1 %; Eosinophils # (A) 0.2 k/uL (0-0.7); Eosinophils % (A) 5 %; HCT 40.2 % (39.0-53.0); HGB 13.2 gm/dL (13.0-17.5); Lymphocytes # (A) 1.8 k/uL (1.0-4.8); Lymphocytes % (A) 37 %; MCH 28.9 pg (25.0-35.0); MCHC 32.9 g/dL (31.0-37.0); Mean Platelet Volume 7.6; Monocytes # (A) 0.3 k/uL (0-1.0); Monocytes % (A) 7 %; Neutrophils # (A) 2.4 k/uL (1.3-7.7); Neutrophils % (A) 49 %; Platelet Count 177 k/uL (150-450); RBC 4.57 m/uL (4.30-5.90); RDW 13.2 % (11.5-15.5); WBC 4.9 k/uL (3.8-10.6)
[2021-04-05] MEDS: INSULIN ASPART (NovoLOG) 100 UNIT/ML VIAL SQ SCH ×3 (07:33→17:31)
[2021-04-05] MEDS: METOPROLOL TARTRATE 25 MG TAB PO SCH (07:53)
[2021-04-05] MEDS: CARBIDOPA-LEVODOPA 25-100 MG 1 EACH TAB PO SCH ×2 (07:53→16:22)
[2021-04-05] MEDS: FUROSEMIDE 20 MG TAB PO SCH (07:53)
[2021-04-05] MEDS: metFORMIN 500 MG TAB PO SCH ×2 (07:53→16:22)
[2021-04-05] MEDS: CHOLECALCIFEROL 25 MCG (1000 IU) TABLET PO SCH (07:54)
[2021-04-05] MEDS: THIAMINE 100 MG TAB PO SCH (07:54)
[2021-04-05 07:56] LABS: ALT <6 U/L (4-49); AST 22 U/L (17-59); African American GFR (CKD) >90 (>60 ml/min/1.73 sqM); Albumin 3.1 g/dL (3.5-5.0); Albumin/Globulin Ratio 1.1; Alkaline Phosphatase 62 U/L (38-126); Anion Gap 7 mmol/L; Blood Urea Nitrogen 17 mg/dL (9-20); Calcium 8.4 mg/dL (8.4-10.2); Carbon Dioxide 26 mmol/L (22-30); Chloride 104 mmol/L (98-107); Globulin 2.7 g/dL; Glucose 121 mg/dL (74-99); Non-African American GFR(CKD) 82 (>60 ml/min/1.73 sqM); Sodium 137 mmol/L (137-145); Total Bilirubin 0.5 mg/dL (0.2-1.3); Total Protein 5.8 g/dL (6.3-8.2)
[2021-04-05] MEDS ORDERED: FAMOTIDINE 20 MG TAB PO SCH (09:00)
[2021-04-05 12:11] LABS: Glucose,Whole Blood 196 mg/dL (75-99)
[2021-04-05 15:08] VITALS: BP 117/75; PULSE 63; RESP 18; TEMP 98.2
--- NOTE | 2021-04-05 16:22 | P.PN ---
Subjective Progress Note Date: 04/05/21 The patient was seen at bedside and he stated that he is doing well. No further episode of seizures or unresponsiveness per the patient nurse. Objective - Vital Signs Vital signs: Vital Signs Temp 98.2 F 04/05/21 15:07 Pulse 63 04/05/21 15:07 Resp 18 04/05/21 15:07 BP 117/75 04/05/21 15:07 Pulse Ox 100 04/05/21 15:07 Intake & Output 04/04/21 04/05/21 04/05/21 18:59 06:59 18:59 Output Total 200 Balance -200 Output: Urine 200 Other: Voiding Method Toilet Toilet Toilet Urinal Urinal Urinal - Exam GENERAL: The patient is lying in bed and is not in acute distress. NEUROLOGICAL: Higher mental function: The patient is awake, alert, oriented to self, place and time. Patient is able to identify objects (pen and watch) correctly. Patient is following simple commands. No aphasia and no neglect. Cranial nerves: The pupils are round, equal and reactive to light. Visual zuniga are full to confrontation throughout. Extraocular movement are restricted in movement looking to right or left but is able to look up and down (chronic per patient). Facial sensation is normal to touch throughout. The facial strength is mild left nasolabial flattening. Hearing is normal bilaterally to hand rub. Tongue is midline and moved [id number] without any difficulty. Patient has some orobucal dyskinetic movment. Has mild dysarthria. Shoulder shrug is normal bilaterally. Motor: The strength is 5-/5 throughout. Has decrease bulk in distal lower extremities bilaterally. . Cerebellum: Normal finger to nose bilaterally. Sensation: Sensation is normal to touch throughout. Reflexes (right/left):2+ upper while lower are 1+ lowers.. Plantars are mute bilaterally. - Labs CBC & Chem 7: 04/05/21 06:31 04/05/21 06:31 Labs: Abnormal Lab Results - Last 24 Hours (Table) 04/04/21 04/04/21 04/04/21 Range/Units 15:13 16:37 20:34 Glucose (74-99) mg/dL POC Glucose (mg/dL) 153 H 124 H (75-99) mg/dL Hemoglobin A1c 6.5 H (4.0-6.0) % Total Protein (6.3-8.2) g/dL Albumin (3.5-5.0) g/dL 04/05/21 04/05/21 04/05/21 Range/Units 06:31 07:20 12:06 Glucose 121 H (74-99) mg/dL POC Glucose (mg/dL) 107 H 196 H (75-99) mg/dL Hemoglobin A1c (4.0-6.0) % Total Protein 5.8 L (6.3-8.2) g/dL Albumin 3.1 L (3.5-5.0) g/dL Assessment and Plan Assessment: Breakthrough seizure (seems provoked from hypoglycemia with sugar was 53 on presentation) History of seizure disorder Developmental delay Episode of hypoglycemia Parkinson's disease History of Polio Diabetes mellitus Sleep apnea Plan: CT of the head is reported as cerebral atrophy. No acute intracranial abnormality. No change. Continue Keppra 750mg 1 tab bid. EEG on 04/04/2021 is normal. Please avoid any further hypoglycemic event and will defer management to the primary team. We'll defer the rest of the medical measure to the primary team. Upon discharge the patient needs to follow-up with a neurologist as an outpatient within 1-2 weeks (Dr. Tenzin Simon). There is no further neurological work-up. Dawit Phillips MD Neuro-Hospitalist Time with Patient: Less than 30
--- NOTE | 2021-04-07 15:50 | P.DS ---
Providers Date of admission: 04/04/21 01:27 Attending physician: Hiwot Grace MD Consults: 04/04/21 01:34 Consult Physician Routine Consulting Provider: Christine Ni Consult Reason/Comments: sz Do you want consulting provider notified?: Yes Primary care physician: Hiwot Grace MD Hospital Course: 65 years old male patient of mine with past medical history of type [address] Cornell, GERD, history of developmental delay under the care of his cousin, history of polio as a child with chronic difficulty with gait, vision and speech, history of obstructive sleep apnea on CPAP, history of Parkinson on Sinemet, seizure disorder last seizure 1-2 years ago, a potential, hyperlipidemia comes in with an episode of seizure that lasted 5 minutes. According to the cousin patient was having his dinner and started banging on the plate. Cousin laid the patient on the floor and within a few seconds patient started having tonic-clonic seizure that lasted 5 minutes. Patient's glucose prior to his dinner was 111 and patient was given 3 units by the cousin On arrival of the EMS patient's blood sugar was 42 he received a dose of glucagon. Patient's blood sugar was 53 in the ER. He was given a dose of D50 amp and was started on dextrose half tenderness at 100 mL per hour. His seizure dose of Keppra 1000 followed by 1000 mg every 12 hours. Patient was seen by neurology who has recommended EEG and an increase in his Keppra dosing. Patient follows with Dr. Simon and the last seizure was one to 2 years ago when patient was started on Keppra. According to the cousin patient's sugar usually stays in the 400 and he sees medical writer. In assessment of patient's vital in the ER patient had a temp 98 pulse 52 respiratory rate 15 blood pressure 150/70. Labs were reviewed patient's hemoglobin is 14.1 WBC 8.4 platelet 173 CMP was unremarkable. Repeat blood sugar is 145. Patient evaluated today denies any dizziness or chest pain and breathing difficulty. He has no rigidity or neck stiffness. He denies any fever or chills. 04/06 no recurrent symproms, EEG was neg, keppra dose readjusted to 750 mg po BID, insulin sliding scale was given to patient. Diabetic education onsult was placed. labs and vitals were nreviewed and were normal Discharge diagnosis #1 seizure likely secondary to hypoglycemia with underlying history of seizure disorder. #2 type 2 diabetes uncontrolled with hyperglycemia with diabetic neuropathy #3 hyperlipidemia #4 hypertension #5 BPH #6 obstructive sleep apnea on CPAP #7 Parkinson disease #8 history of polio with restricted peripheral vision and dysarthria , chronic #9 development delay under the care of caregiver Disposition - home with home care Patient Condition at Discharge: Fair Plan - Discharge Summary Discharge Rx Participant: No New Discharge Prescriptions: New levETIRAcetam [Keppra] 750 mg PO Q12HR #60 tab Continue Cholecalciferol [Vitamin D3 (25 Mcg = 1000 Iu)] 50 mcg PO DAILY Metoprolol Tartrate [Lopressor] 25 mg PO BID Tamsulosin [Flomax] 0.4 mg PO HS Furosemide [Lasix] 20 mg PO DAILY Atorvastatin [Lipitor] 20 mg PO HS Thiamine [Vitamin B-1] 100 mg PO DAILY Carbidopa-Levodopa 25-100 mg [Sinemet 25-100 mg] 1 tab PO TID metFORMIN HCL 1,000 mg PO BID Insulin Lispro [humaLOG Kwikpen] See Protocol SQ AC-TID hydrOXYzine HCL [Atarax] 20 mg PO HS Bacitracin Zinc Oint 1 applic TOPICAL BID Pioglitazone [Actos] 15 mg PO DAILY Insulin Glargine,Hum.rec.anlog [Lantus Solostar] 10 unit SQ HS Loperamide HCl [Imodium A-D] 2 - 4 mg PO QID PRN PRN Reason: Diarrhea Discontinued levETIRAcetam [levETIRAcetam ER] 500 mg PO DAILY Discharge Medication List Cholecalciferol [Vitamin D3 (25 Mcg = 1000 Iu)] 50 mcg PO DAILY 08/04/14 [History] Atorvastatin [Lipitor] 20 mg PO HS 02/04/18 [History] Furosemide [Lasix] 20 mg PO DAILY 02/04/18 [History] Metoprolol Tartrate [Lopressor] 25 mg PO BID 02/04/18 [History] Tamsulosin [Flomax] 0.4 mg PO HS 02/04/18 [History] Carbidopa-Levodopa 25-100 mg [Sinemet 25-100 mg] 1 tab PO TID 06/24/18 [History] Thiamine [Vitamin B-1] 100 mg PO DAILY 06/24/18 [History] Bacitracin Zinc Oint 1 applic TOPICAL BID 04/04/21 [History] Insulin Glargine,Hum.rec.anlog [Lantus Solostar] 10 unit SQ HS 04/04/21 [History] Insulin Lispro [humaLOG Kwikpen] See Protocol SQ AC-TID 04/04/21 [History] Loperamide HCl [Imodium A-D] 2 - 4 mg PO QID PRN 04/04/21 [History] Pioglitazone [Actos] 15 mg PO DAILY 04/04/21 [History] hydrOXYzine HCL [Atarax] 20 mg PO HS 04/04/21 [History] metFORMIN HCL 1,000 mg PO BID 04/04/21 [History] levETIRAcetam [Keppra] 750 mg PO Q12HR #60 tab 04/05/21 [Rx] Follow up Appointment(s)/Referral(s): Hiwot Grace MD [Primary Care Provider] - 04/11/21 8:30 am Patient Instructions/Handouts: Hypoglycemia in a Person with Diabetes (DC), Recurrent Seizures in Adults (ED) Activity/Diet/Wound Care/Special Instructions: Insulin sliding scale Blood glucose < 150 - no insulin 150 - 180 1 unit 181 -210 2 unit 211 - 240 3 unit 241 - 270 4 unit > 270 5 unit Discharge Disposition: HOME WITH HOME HEALTH SERVICES
== END 2021-04-05 18:24 | disposition home health service (06) | DRG 639 ==
LOC: EC 22:14 → 4SSUR 04-04 01:27
PROVIDERS: ADMIT Internal Medicine; ATTEND Internal Medicine
DX: E11.649 Type 2 diabetes mellitus with hypoglycemia without coma (principal); E11.65 Type 2 diabetes mellitus with hyperglycemia; E78.5 Hyperlipidemia, unspecified; G20 Parkinson's disease; G40.909 Epilepsy, unspecified, not intractable, without status epilepticus; G47.33 Obstructive sleep apnea (adult) (pediatric); Z99.89 Dependence on other enabling machines and devices; I10 Essential (primary) hypertension; K21.9 Gastro-esophageal reflux disease without esophagitis; R26.9 Unspecified abnormalities of gait and mobility; R47.1 Dysarthria and anarthria; H53.8 Other visual disturbances; Z20.822 Contact with and (suspected) exposure to COVID-19; N40.0 Benign prostatic hyperplasia without lower urinary tract symptoms; Z79.4 Long term (current) use of insulin; Z79.899 Other long term (current) drug therapy; Z86.12 Personal history of poliomyelitis; Z96.651 Presence of right artificial knee joint; Z98.42 Cataract extraction status, left eye; Z98.41 Cataract extraction status, right eye; Z88.0 Allergy status to penicillin
CPT/HCPCS: 36415; 70450; 80053; 80143; 80156; 80164; 80179; 80185; 80306; 80320; 81003; 83036; 85025; 87635; 93005; 94760; 95816; 96374; 99285

== ENCOUNTER → 2021-04-11 | Outpatient (CLI) | payer MEDICARE, OTHER | END | disposition home or self-care (01) | LOC: LABWHC1 10:20 | PROVIDERS: ATTEND Internal Medicine | DX: G40.89 Other seizures (principal) | CPT/HCPCS: 36415; 80177 ==

== ENCOUNTER → 2021-12-05 | Outpatient (CLI) | payer MEDICARE, OTHER ==
[2021-12-05 21:01] LABS: HCT 47.4 % (39.6-50.0); HGB 14.3 g/dL (13.0-17.0); MCH 27.7 pg (27.0-32.0); MCHC 30.2 g/dL (32.0-37.0); MCV 91.9 fL (80.0-97.0); Platelet Count 170 X 10*3/uL (140-440); RBC 5.16 X 10*6/uL (4.40-5.60); RDW 13.4 % (11.5-14.5); WBC 4.99 X 10*3/uL (4.50-10.00)
[2021-12-05 23:33] LABS: ALT 9 U/L (10-49); AST 16 U/L (14-35); African American GFR (CKD) 84.1 (60.0-200.0); Albumin 4.7 g/dL (3.8-4.9); Albumin/Globulin Ratio 1.69 (1.60-3.17); Alkaline Phosphatase 78 U/L (41-126); BUN/Creat Ratio 16.86 Ratio (12.00-20.00); Blood Urea Nitrogen 17.7 mg/dL (9.0-27.0); Calcium 9.4 mg/dL (8.7-10.3); Chloride 104 mmol/L (96-109); Chol/HDL Ratio 2.86 Ratio; Globulin 2.8 g/dL (1.6-3.3); Glucose 91 mg/dL (70-110); LDL Cholesterol,Calculated 64.9 mg/dL (0.0-131.0); Non-African American GFR(CKD) 72.6 (60.0-200.0); Potassium 4.4 mmol/L (3.5-5.5); Sodium 141 mmol/L (135-145); Total Protein 7.4 g/dL (6.2-8.2); VLDL Calculation 15.78 mg/dL (5.00-40.00)
== END | disposition home or self-care (01) ==
LOC: LABWHC1 11:45
PROVIDERS: ATTEND Internal Medicine
DX: E11.9 Type 2 diabetes mellitus without complications (principal); R19.7 Diarrhea, unspecified
CPT/HCPCS: 36415; 80053; 80061; 83036; 85027

== ENCOUNTER → 2022-03-19 | Outpatient (CLI) | payer MEDICARE, OTHER | END | disposition home or self-care (01) | LOC: LABWHC1 09:53 | PROVIDERS: ATTEND Psychiatry & Neurology Neurology | DX: G20 Parkinson's disease (principal); G40.89 Other seizures | CPT/HCPCS: 36415; 80177 ==

== ENCOUNTER → 2024-06-22 | Outpatient (CLI) | payer MEDICARE, OTHER ==
--- NOTE | 2024-06-22 18:16 | CT ---
EXAMINATION TYPE: CT chest wo con CT DLP: 322.1 mGycm, Automated exposure control for dose reduction was used. DATE OF EXAM: 06/22/2024 4:29 PM COMPARISON: None CLINICAL INDICATION:Male, 68 years old with history of R07.89 OTHER CHEST PAIN; PHH, CP TECHNIQUE: Multiple axial images were obtained through the chest. Sagittal and coronal reformats were created for review. Contrast used: mL of (None if empty) Oral contrast used: (None if empty) FINDINGS: LUNGS/ PLEURA: No focal consolidation, pneumothorax or pleural effusion. Few scattered air cysts are present. AIRWAY: Patent and unremarkable. HEART: Size within normal limits.Atherosclerosis of the arterial vasculature. MEDIASTINUM: No gross evidence of adenopathy. VASCULATURE: No aortic aneurysm. MUSCULOSKELETAL: No acute osseous abnormalities. The ribs appear intact. Moderate to severe degenerat ion changes spine with Schmorl's nodes disc space narrowing and osteophytes. Facet joint arthropathy is also present. SOFT TISSUES/LYMPH NODES: Unremarkable. LOWER NECK: No significant findings. UPPER ABDOMEN: No significant findings. IMPRESSION: 1. No displaced rib fracture. No evidence for acute thoracic process to explain the patient's pain. 2. Moderate to severe disc degeneration changes of the spine.
== END | disposition home or self-care (01) ==
LOC: RADCTMAIN 15:51
PROVIDERS: ATTEND Internal Medicine Geriatric Medicine
DX: R07.89 Other chest pain (principal); M51.36 Other intervertebral disc degeneration, lumbar region
CPT/HCPCS: 71250

== ENCOUNTER 2024-11-11 09:09 | Day surgery (SDC) | payer MEDICARE, OTHER ==
[2024-11-11] MEDS: IV FLUID CONTINUATION 1,000 ML IV ONE (10:35)
[2024-11-11 10:36] VITALS: TEMP 98.6
[2024-11-11] MEDS: LIDOCAINE 1% (10MG/ML) FOR IV START INTRADERMA STA (10:36)
[2024-11-11] MEDS: LACTATED RINGERS 1,000 ML IV SCH (10:37)
[2024-11-11 10:53] LABS: Glucose,Whole Blood 83 mg/dL (70-110)
[2024-11-11] MEDS ORDERED: PROPOFOL 10 MG/ML 20 ML VIAL IV ONE (11:32)
--- NOTE | 2024-11-11 11:52 | P.PCN ---
Date of Procedure: 11/11/24 Procedure(s) Performed: BRIEF HISTORY: Patient is a 69-year-old pleasant white male scheduled for an elective colonoscopy as a part of screening for colon cancer. PROCEDURE PERFORMED: Colonoscopy. PREOPERATIVE DIAGNOSIS: Screening for colon cancer. IV sedation per Anesthesia. PROCEDURE: After informed consent was obtained, the patient, was brought into the endoscopy unit. IV sedation was administered by Anesthesia under continuous monitoring. Digital rectal examination was normal. Initially the Olympus CF-160 flexible video colonoscope was then inserted in the rectum, gradually advanced into the cecum without any difficulty. Careful examination was performed as the scope was gradually being withdrawn. Ileocecal valve and the appendiceal orifice were visualized and appeared normal. Prep was excellent. Mucosa of the cecum, ascending colon, transverse colon, descending colon, sigmoid colon, and rectum appeared normal. Retroflexion was performed in the rectum and small internal hemorrhoid were seen. The patient tolerated the procedure well. IMPRESSION: Normal-appearing colon from rectum to cecum with no evidence of colorectal neoplasia. Small internal hemorrhoids. RECOMMENDATIONS: Findings of this examination were discussed with the patient as well as his family. He was advised to have repeat screening colonoscopy in 10 years.
[2024-11-11 12:01] VITALS: RESP 20
[2024-11-11 12:25] VITALS: BP 137/70; PULSE 59
== END 2024-11-11 12:46 | disposition home or self-care (01) ==
LOC: ORWHC2ENDO 09:09
PROVIDERS: ATTEND Internal Medicine Gastroenterology
DX: Z12.11 Encounter for screening for malignant neoplasm of colon (principal); K21.9 Gastro-esophageal reflux disease without esophagitis; K64.8 Other hemorrhoids; I10 Essential (primary) hypertension; E78.5 Hyperlipidemia, unspecified; E11.9 Type 2 diabetes mellitus without complications; M19.90 Unspecified osteoarthritis, unspecified site; G40.509 Epileptic seizures related to external causes, not intractable, without status epilepticus; G20.A1 Parkinson's disease without dyskinesia, without mention of fluctuations; Z88.0 Allergy status to penicillin; Z79.84 Long term (current) use of oral hypoglycemic drugs; Z79.899 Other long term (current) drug therapy
CPT/HCPCS: J2704; G0121; 45378

== ENCOUNTER → 2025-05-19 | Outpatient (CLI) | payer MEDICARE, OTHER ==
--- NOTE | 2025-05-20 08:03 | XR ---
EXAMINATION TYPE: XR wrist complete 4 views LT, XR hand complete 3 views LT DATE OF EXAM: 05/19/2025 5:02 PM COMPARISON: None CLINICAL INDICATION: Male, 69 years old with history of M25.532 PAIN IN LEFT WRIST; PHH, pain FINDINGS: Wrist: The radiocarpal and distal radial ulnar joint as well as the midcarpal compartment appear intact. The re is mild calcification in the region of the TFC. Mild soft tissue swelling is present about the wri st. Hand: Mild degenerative joint space narrowing and marginal spurring at the first CMC and triscaphe joints. Generalized soft tissue swelling of the hand. There appears to be boutonniere's deformity of the fift h finger. Moderate degenerative change third MCP joint. Bony ankylosis across the first MCP joint. Mi ld degenerative spurring first IP joint. No marginal erosions are identified. No acute fracture or di slocation. IMPRESSION: 1. Wrist: Soft tissue swelling. Faint TFC calcifications may be idiopathic or could reflect CPPD. No acute osseous abnormality seen. 2. Hand: Diffuse soft tissue swelling. Clinically correlate. Mild to moderate OA at the basal joint o f the thumb. Boutonniere's deformity of the fifth finger, correlate for prior tendon injury. Moderate OA third MCP joint. Mature bony ankylosis across the first MCP joint. [facility], , 05/20/2025 8:00 AM
== END | disposition home or self-care (01) ==
LOC: RADXRMAIN 16:27
PROVIDERS: ATTEND Registered Nurse Gerontology
DX: M19.042 Primary osteoarthritis, left hand (principal); M19.032 Primary osteoarthritis, left wrist